=== PATIENT | female | born 1945 | race Caucasian/White ===

== ENCOUNTER 2018-08-18 12:43 | Emergency (ER) | payer MEDICARE, OTHER, SELFPAY ==
--- NOTE | 2018-08-18 12:49 | DI.RAD.S_ITS ---
PROCEDURE: XR RIBS RT MIN 3V W CXR 1V INDICATIONS: injury TECHNIQUE: 2 views of the right ribs were acquired, along with a single view chest. COMPARISON: None. FINDINGS: Surgical changes and devices: None. Bones and chest wall: No fractures or dislocations. No suspicious bony lesions. Overlying soft tissues appear unremarkable. Lungs and pleura: No pleural effusions or pneumothorax. Lungs appear clear. Mediastinum: Mediastinal contours appear normal. Heart size is normal. IMPRESSION: No trauma found. Dictated by: Angel Weir M.D. on 08/18/2018 at 13:27 Approved by: Angel Weir M.D. on 08/18/2018 at 13:28
[2018-08-18 12:52] VITALS: BP 139/64; PULSE 80; RESP 15; TEMP 36.2; O2SAT 98
--- NOTE | 2018-08-18 13:38 | ED.FALL ---
HPI - Fall <DAYDAY Mclaughlin- - Last Filed: 08/18/18 14:36> General Chief Complaint: Fall Stated Complaint: GLF,on to her chest, hurts to breath Time Seen by Provider: 08/18/18 13:29 Source: patient Mode of arrival: ambulatory Limitations: no limitations History of Present Illness HPI Narrative: Patient presents with chief complaint of chest pain on her left breast that started after a ground level fall at a.m. this morning. She said she was bending over while gardening and Tripped on a rock. She states she landed with her chest on for ground. She states she is having pain upon taking a deep breath or laughing. She took 400 mg of ibuprofen at 0800. she denies any chest pain or shortness of breath at this time. She denies any overt bruising. She states she tripped and fell and did not have an episode of syncope or lightheadedness. She states she did not hit her head or her neck or her back. Related Data Home Medications Medication Instructions Recorded Confirmed acyclovir [Zovirax] 200 mg PO BID #0 cap 07/02/16 cholecalciferol (vitamin D3) 2,000 iu PO QDAY #0 07/02/16 [Vitamin D3] ciprofloxacin HCl [Cipro] #0 10/02/17 simvastatin 40 mg PO HS #0 10/02/17 Previous Rx's Medication Instructions Recorded naproxen 500 mg PO BID PRN #20 tab 08/18/18 Allergies Allergy/AdvReac Type Severity Reaction Status Date / Time Sulfa (Sulfonamide Allergy Intermediate Verified 08/18/18 12:52 Antibiotics) [SULFA (SULFONAMIDE ANTIBIOTICS)] Review of Systems <MARY Mclaughlin - Last Filed: 08/18/18 14:36> Review of Systems GENERAL: Denies chills, fatigue, malaise, fever, sweats. HEENT: Denies sinus pain, ear pain, sore throat, difficulty swallowing, dizziness. RESPIRATORY: see HPI CARDIOVASCULAR: Denies chest pain, palpitations, orthopnea, edema, GASTROINTESTINAL: Denies nausea, vomiting, abdominal pain, diarrhea, constipation, melena. : Denies dysuria, frequency, incontinence, hematuria, urinary retention. MUSCULOSKELETAL: See HPI SKIN: Denies rash, skin lesions, or other NEUROLOGIC: Denies weakness, headache, numbness, change in speech, confusion, seizures, incoordination. PSYCHIATRIC: No concerning psychosocial issues. 12 point review of systems is negative except for those stated above Exam <DAYDAY Mclaughlin-BC - Last Filed: 08/18/18 14:36> Narrative Exam Narrative: GENERAL: This is a well-nourished, well-developed patient, teary HEAD: Atraumatic. Normocephalic. No temporal or scalp tenderness. EYES: Pupils equal round and reactive. Extraocular motions intact. No scleral icterus. No injection or drainage. ENT: Nose without bleeding, purulent drainage or septal hematoma. Throat without erythema, tonsillar hypertrophy or exudate. Uvula midline. Airway patent. NECK: Trachea midline. No JVD or lymphadenopathy. Supple, nontender, no meningeal signs. CARDIOVASCULAR: Regular rate and rhythm without murmurs, gallops, or rubs. RESPIRATORY: Clear to auscultation. Breath sounds equal bilaterally. No wheezes, rales, or rhonchi. no cough on exam. Patient has pain on right-sided costochondral joints. Patient has pain and anterior posterior compression of chest wall. Patient has pain on lateral chest wall compression. GASTROINTESTINAL: Abdomen soft, non-tender, nondistended. No hepato-splenomegaly, or palpable masses. No guarding. EXTREMITIES: No clubbing, cyanosis, or edema. No joint tenderness, effusion, or edema noted. BACK: Nontender without deformity or crepitance. No flank tenderness. NEURO: AOx3. SKIN: no rash erythema or ecchymosis noted on chest Initial Vital Signs Initial Vital Signs: Vital Signs Temperature 97.2 F L 08/18/18 12:52 Pulse Rate 80 08/18/18 12:52 Respiratory Rate 15 08/18/18 12:52 Blood Pressure 139/64 08/18/18 12:52 Pulse Oximetry 98 08/18/18 12:52 <Kristofer Fuentes DO - Last Filed: 08/18/18 15:18> Initial Vital Signs Initial Vital Signs: Vital Signs Temperature 97.2 F L 08/18/18 12:52 Pulse Rate 80 08/18/18 12:52 Respiratory Rate 15 08/18/18 12:52 Blood Pressure 139/64 08/18/18 12:52 Pulse Oximetry 98 08/18/18 12:52 Course <BRISSA Mclaughlin - Last Filed: 08/18/18 14:36> Orders Ordered: ED Orders 08/18/18 12:49 XR ribs RT min 3V w CXR1V Stat Discontinued Medications Ketorolac Tromethamine (Toradol) 30 mg IM NOW ONE Stop: 08/18/18 13:49 Last Admin: 08/18/18 13:57 Dose: 30 mg Reevaluation(s) Reevaluation #1: friends at bedside. Discussed negative x-ray results. Discussed use of Toradol. Patient declines narcotic pain medication upon discharge Time: 13:50 Reevaluation #2: discussed pain medications upon discharge. Discussed taking NSAIDs for 6-8 hours after Toradol. Patient has no questions or concer Time: 14:10 Vital Signs - 8 hr 08/18/18 12:52 08/18/18 14:23 Temperature 97.2 F L Pulse Rate 80 78 Respiratory Rate 15 14 Blood Pressure 139/64 Blood Pressure [Right Arm] 130/80 Pulse Oximetry 98 99 <Kristofer Fuentes DO - Last Filed: 08/18/18 15:18> Orders Ordered: ED Orders 08/18/18 12:49 XR ribs RT min 3V w CXR1V Stat Discontinued Medications Ketorolac Tromethamine (Toradol) 30 mg IM NOW ONE Stop: 08/18/18 13:49 Last Admin: 08/18/18 13:57 Dose: 30 mg Vital Signs - 8 hr 08/18/18 12:52 08/18/18 14:23 Temperature 97.2 F L Pulse Rate 80 78 Respiratory Rate 15 14 Blood Pressure 139/64 Blood Pressure [Right Arm] 130/80 Pulse Oximetry 98 99 MDM - Fall <BRISSA Mclaughlin - Last Filed: 08/18/18 14:36> Imaging Data Chest x-ray: Radiologist's impression: [address] [address] XRay Report Signed Patient: Radha Blandon LMR#: [id number] : 7Acct:[id number] Age/Sex: 73 / FDate of Service: 08/18/18 Loc: ED Accession Number: [id number] Procedure: XR ribs RT min 3V w CXR1V Ordering Provider: Kristofer Fuentes D.O. PROCEDURE: XR RIBS RT MIN 3V W CXR 1V INDICATIONS: injury TECHNIQUE: 2 views of the right ribs were acquired, along with a single view chest. COMPARISON: None. FINDINGS: Surgical changes and devices: None. Bones and chest wall: No fractures or dislocations. No suspicious bony lesions. Overlying soft tissues appear unremarkable. Lungs and pleura: No pleural effusions or pneumothorax. Lungs appear clear. Mediastinum: Mediastinal contours appear normal. Heart size is normal. IMPRESSION: No trauma found. Dictated by: Angel Weir M.D. on 08/18/2018 at 13:27 Approved by: Angel Weir M.D. on 08/18/2018 at 13:28 [facility] Narrative Medical decision making narrative: Patient presents with chest wall pain after fall. She is hemodynamically stable, and has a negative x-ray illustrated no fractures. She was treated with Toradol in the emergency department. I discussed continued importance of deep breathing and pain control. Patient Narcotics upon discharge. Discussed follow up with primary care for new or worsening symptoms. Discharge Plan Departure Patient Disposition: Home Clinical Impression: Contusion of chest wall, Fall from ground level Discharge Date/Time: 08/18/18 14:26 Interventions: ED Discharge Assessment Last Done: 08/18/18 14:25 Instructions: DI for Contusion, DI for Rib Contusion Activity Restrictions/Additional Instructions: Your x-rays today did not show any fractures. I believe you have a contusion of her chest wall. Unfortunately these can take a long time to heal. Please remember to keep taking deep breaths in order to prevent pneumonia. We gave you an injection of Toradol in the emergency department please do not take any other NSAIDs for 6-8 hours after. I gave you a prescription of naproxen which she can take for pain at morning and night if needed. Please do not take any other NSAIDs with this. Follow up with primary care provider if needed. Prescriptions: New naproxen 500 mg tablet 500 mg PO BID PRN (Reason: pain) Qty: 20 RF: 0 No Action acyclovir [Zovirax] 200 MG capsule 200 mg PO BID Qty: 0 RF: 0 cholecalciferol (vitamin D3) [Vitamin D3] 2,000 UNIT capsule 2,000 iu PO QDAY Qty: 0 RF: 0 simvastatin 40 MG tablet 40 mg PO HS Qty: 0 RF: 0 ciprofloxacin HCl [Cipro] 500 MG tablet Qty: 0 RF: 0 <Kristofer Fuentes, DO - Last Filed: 08/18/18 15:18> Cosign ED Attending Paola Attestation: I was available for consultation during this patient's emergency department encounter
--- NOTE | 2018-08-18 13:42 | ED_ITS ---
HPI - Fall <DAYDAY Mclaughlin- - Last Filed: 08/18/18 14:36> General Chief Complaint: Fall Stated Complaint: GLF,on to her chest, hurts to breath Time Seen by Provider: 08/18/18 13:29 Source: patient Mode of arrival: ambulatory Limitations: no limitations History of Present Illness HPI Narrative: Patient presents with chief complaint of chest pain on her left breast that started after a ground level fall at a.m. this morning. She said she was bending over while gardening and Tripped on a rock. She states she landed with her chest on for ground. She states she is having pain upon taking a deep breath or laughing. She took 400 mg of ibuprofen at 0800. she denies any chest pain or shortness of breath at this time. She denies any overt bruising. She states she tripped and fell and did not have an episode of syncope or lightheadedness. She states she did not hit her head or her neck or her back. Related Data Home Medications Medication Instructions Recorded Confirmed acyclovir [Zovirax] 200 mg PO BID #0 cap 07/02/16 cholecalciferol (vitamin D3) 2,000 iu PO QDAY #0 07/02/16 [Vitamin D3] ciprofloxacin HCl [Cipro] #0 10/02/17 simvastatin 40 mg PO HS #0 10/02/17 Previous Rx's Medication Instructions Recorded naproxen 500 mg PO BID PRN #20 tab 08/18/18 Allergies Allergy/AdvReac Type Severity Reaction Status Date / Time Sulfa (Sulfonamide Allergy Intermediate Verified 08/18/18 12:52 Antibiotics) [SULFA (SULFONAMIDE ANTIBIOTICS)] Review of Systems <MARY Mclaughlin - Last Filed: 08/18/18 14:36> Review of Systems GENERAL: Denies chills, fatigue, malaise, fever, sweats. HEENT: Denies sinus pain, ear pain, sore throat, difficulty swallowing, dizziness. RESPIRATORY: see HPI CARDIOVASCULAR: Denies chest pain, palpitations, orthopnea, edema, GASTROINTESTINAL: Denies nausea, vomiting, abdominal pain, diarrhea, constipation, melena. : Denies dysuria, frequency, incontinence, hematuria, urinary retention. MUSCULOSKELETAL: See HPI SKIN: Denies rash, skin lesions, or other NEUROLOGIC: Denies weakness, headache, numbness, change in speech, confusion, seizures, incoordination. PSYCHIATRIC: No concerning psychosocial issues. 12 point review of systems is negative except for those stated above Exam <DAYDAY Mclaughlin-BC - Last Filed: 08/18/18 14:36> Narrative Exam Narrative: GENERAL: This is a well-nourished, well-developed patient, teary HEAD: Atraumatic. Normocephalic. No temporal or scalp tenderness. EYES: Pupils equal round and reactive. Extraocular motions intact. No scleral icterus. No injection or drainage. ENT: Nose without bleeding, purulent drainage or septal hematoma. Throat without erythema, tonsillar hypertrophy or exudate. Uvula midline. Airway patent. NECK: Trachea midline. No JVD or lymphadenopathy. Supple, nontender, no meningeal signs. CARDIOVASCULAR: Regular rate and rhythm without murmurs, gallops, or rubs. RESPIRATORY: Clear to auscultation. Breath sounds equal bilaterally. No wheezes , rales, or rhonchi. no cough on exam. Patient has pain on right-sided costochondral joints. Patient has pain and anterior posterior compression of chest wall. Patient has pain on lateral chest wall compression. GASTROINTESTINAL: Abdomen soft, non-tender, nondistended. No hepato-splenomegaly , or palpable masses. No guarding. EXTREMITIES: No clubbing, cyanosis, or edema. No joint tenderness, effusion, or edema noted. BACK: Nontender without deformity or crepitance. No flank tenderness. NEURO: AOx3. SKIN: no rash erythema or ecchymosis noted on chest Initial Vital Signs Initial Vital Signs: Vital Signs Temperature 97.2 F L 08/18/18 12:52 Pulse Rate 80 08/18/18 12:52 Respiratory Rate 15 08/18/18 12:52 Blood Pressure 139/64 08/18/18 12:52 Pulse Oximetry 98 08/18/18 12:52 <Kristofer Fuentes DO - Last Filed: 08/18/18 15:18> Initial Vital Signs Initial Vital Signs: Vital Signs Temperature 97.2 F L 08/18/18 12:52 Pulse Rate 80 08/18/18 12:52 Respiratory Rate 15 08/18/18 12:52 Blood Pressure 139/64 08/18/18 12:52 Pulse Oximetry 98 08/18/18 12:52 Course <BRISSA Mclaughlin - Last Filed: 08/18/18 14:36> Orders Ordered: ED Orders 08/18/18 12:49 XR ribs RT min 3V w CXR1V Stat Discontinued Medications Ketorolac Tromethamine (Toradol) 30 mg IM NOW ONE Stop: 08/18/18 13:49 Last Admin: 08/18/18 13:57 Dose: 30 mg Reevaluation(s) Reevaluation #1: friends at bedside. Discussed negative x-ray results. Discussed use of Toradol. Patient declines narcotic pain medication upon discharge Time: 13:50 Reevaluation #2: discussed pain medications upon discharge. Discussed taking NSAIDs for 6-8 hours after Toradol. Patient has no questions or concer Time: 14:10 Vital Signs - 8 hr 08/18/18 12:52 08/18/18 14:23 Temperature 97.2 F L Pulse Rate 80 78 Respiratory Rate 15 14 Blood Pressure 139/64 Blood Pressure [Right Arm] 130/80 Pulse Oximetry 98 99 <Kristofer Fuentes DO - Last Filed: 08/18/18 15:18> Orders Ordered: ED Orders 08/18/18 12:49 XR ribs RT min 3V w CXR1V Stat Discontinued Medications Ketorolac Tromethamine (Toradol) 30 mg IM NOW ONE Stop: 08/18/18 13:49 Last Admin: 08/18/18 13:57 Dose: 30 mg Vital Signs - 8 hr 08/18/18 12:52 08/18/18 14:23 Temperature 97.2 F L Pulse Rate 80 78 Respiratory Rate 15 14 Blood Pressure 139/64 Blood Pressure [Right Arm] 130/80 Pulse Oximetry 98 99 MDM - Fall <BRISSA Mclaughlin - Last Filed: 08/18/18 14:36> Imaging Data Chest x-ray: Radiologist's impression: [address] [address] XRay Report Signed Patient: Radha Blandon LMR#: [id number] : 7Acct:[id number] Age/Sex: 73 / FDate of Service: 08/18/18 Loc: ED Accession Number: [id number] Procedure: XR ribs RT min 3V w CXR1V Ordering Provider: Kristofer Fuentes D.O. PROCEDURE: XR RIBS RT MIN 3V W CXR 1V INDICATIONS: injury TECHNIQUE: 2 views of the right ribs were acquired, along with a single view chest. COMPARISON: None. FINDINGS: Surgical changes and devices: None. Bones and chest wall: No fractures or dislocations. No suspicious bony lesions. Overlying soft tissues appear unremarkable. Lungs and pleura: No pleural effusions or pneumothorax. Lungs appear clear. Mediastinum: Mediastinal contours appear normal. Heart size is normal. IMPRESSION: No trauma found. Dictated by: Angel Weir M.D. on 08/18/2018 at 13:27 Approved by: Angel Weir M.D. on 08/18/2018 at 13:28 [facility] Narrative Medical decision making narrative: Patient presents with chest wall pain after fall. She is hemodynamically stable, and has a negative x-ray illustrated no fractures. She was treated with Toradol in the emergency department. I discussed continued importance of deep breathing and pain control. Patient Narcotics upon discharge. Discussed follow up with primary care for new or worsening symptoms. Discharge Plan Departure Patient Disposition: Home Clinical Impression: Contusion of chest wall, Fall from ground level Discharge Date/Time: 08/18/18 14:26 Interventions: ED Discharge Assessment Last Done: 08/18/18 14:25 Instructions: DI for Contusion, DI for Rib Contusion Activity Restrictions/Additional Instructions: Your x-rays today did not show any fractures. I believe you have a contusion of her chest wall. Unfortunately these can take a long time to heal. Please remember to keep taking deep breaths in order to prevent pneumonia. We gave you an injection of Toradol in the emergency department please do not take any other NSAIDs for 6-8 hours after. I gave you a prescription of naproxen which she can take for pain at morning and night if needed. Please do not take any other NSAIDs with this. Follow up with primary care provider if needed. Prescriptions: New naproxen 500 mg tablet 500 mg PO BID PRN (Reason: pain) Qty: 20 RF: 0 No Action acyclovir [Zovirax] 200 MG capsule 200 mg PO BID Qty: 0 RF: 0 cholecalciferol (vitamin D3) [Vitamin D3] 2,000 UNIT capsule 2,000 iu PO QDAY Qty: 0 RF: 0 simvastatin 40 MG tablet 40 mg PO HS Qty: 0 RF: 0 ciprofloxacin HCl [Cipro] 500 MG tablet Qty: 0 RF: 0 <Kristofer Fuentes, DO - Last Filed: 08/18/18 15:18> Cosign ED Attending Paola Attestation: I was available for consultation during this patient's emergency department encounter
[2018-08-18] MEDS: KETOROLAC 60 MG/2 ML VIAL 30 MG IM (13:57)
[2018-08-18 14:23] VITALS: BP 130/80; PULSE 78; RESP 14; O2SAT 99
== END 2018-08-18 14:26 | disposition home or self-care (01) ==
PROVIDERS: Emergency Provider Nurse Practitioner Family
DX: S20.219A Contusion of unspecified front wall of thorax, initial encounter (principal); W01.0XXA Fall on same level from slipping, tripping and stumbling without subsequent striking against object, initial encounter
CPT/HCPCS: 71101; 96372; 99282; 99283; J1885

== ENCOUNTER → 2020-05-23 09:14 | Outpatient (CLI) | payer MEDICARE, OTHER, SELFPAY ==
--- NOTE | 2020-05-23 | DI.MRI.S_ITS ---
PROCEDURE: MR KNEE RT WO CON INDICATIONS: RIGHT MENISCUS TEAR TECHNIQUE: Noncontrast sagittal PD fast spin echo and T2 fast spin echo with fat saturation, sagittal 3-D FLASH with fat saturation; coronal T1 spin echo and PD fast spin echo with fat saturation, and axial PD fast spin echo with fat saturation through the knee. COMPARISON: None. FINDINGS: Image quality: Excellent. Menisci: Medial extrusion of the medial meniscus is present. Linear oblique high T2 signal intensity traverses the posterior horn medial meniscus, demonstrating inferior articular surface extension, indicating oblique tearing. Lateral meniscus is intact. Cruciate ligaments: The anterior and posterior cruciate ligaments appear intact. Medial structures: The medial collateral ligament appears intact. Visualized portions of the pes anserinus tendons appear normal. No abnormal bursal fluid. Lateral structures: The lateral collateral ligament, long and short heads of the biceps femoris tendon appear intact. The popliteus tendon appears normal. Iliotibial band appears normal. Anterior structures: The quadriceps and patellar tendons appear intact. Patellar alignment is normal. No femoral trochlear dysplasia or ventral trochlear prominence. No edema in the infrapatellar fat pad. Bones and cartilage: Oblique coronal plane linear low T1 signal intensity traverses the posterior weight-bearing aspect of the medial tibial plateau, with moderate surrounding ill-defined STIR signal elevation. There is ill-defined curvilinear low T1 signal intensity traversing the posterior nonweightbearing aspect of the lateral tibial plateau, with mild surrounding ill-defined stir signal elevation. Moderate diffuse articular cartilage loss overlies the weight-bearing aspects of the medial femoral condyle and medial tibial plateau. Mild articular cartilage loss overlies the lateral patellar facet. Moderate cartilage loss overlies the midportion of the medial patellar facet. Joint space: There is a small knee joint effusion and a small Mo's cyst. Normal appearing synovial plicae are incidentally noted. IMPRESSION: 1. Nondisplaced fracture of the posterior weight-bearing aspect of the medial tibial plateau, with surrounding contusion. 2. Incomplete fracture of the posterior nonweightbearing aspect of the lateral tibial plateau, with surrounding contusion. 3. Medial meniscal tear. 4. Knee joint effusion and small Mo's cyst. Dictated by: Minal Jorge M.D. on 05/23/2020 at 15:07 Approved by: Minal Jorge M.D. on 05/23/2020 at 15:10
--- NOTE | 2020-05-23 | DI.MRI.S_ITS ---
PROCEDURE: MR ANKLE RT WO CON INDICATIONS: RIGHT ANKLE PAIN TECHNIQUE: Noncontrast sagittal T1 spin echo and T2 fast spin echo with fat saturation, axial proton density fast spin echo and T2 fast spin echo with fat saturation, coronal T1 spin echo and T2 fast spin echo with fat saturation through the ankle/hindfoot. COMPARISON: [facility] [place], CR, XR ANKLE 3 VIEWS WEIGHT BEARING RIGHT, 03/28/2020, 15:40. FINDINGS: Image quality: Excellent. Bones and joints: There is a mildly displaced small avulsion fracture posteriorly in the lateral malleolus with associated bone marrow edema. No hindfoot coalitions. No osteochondral injuries of the talar dome. There is a small tibiotalar joint effusion Medial structures: The posterior tibialis, flexor digitorum longus, and flexor hallucis longus tendons are intact. The posterior tibial neurovascular bundle appears normal within the tarsal tunnel, without extrinsic mass effect. The deltoid and spring ligaments appear intact. Lateral structures: The anterior talofibular, calcaneofibular, and posterior talofibular ligaments demonstrate attenuated signal with periligamentous edema consistent with moderate sprains. More superiorly, the anterior and posterior tibiofibular ligaments appear intact, as is the intermalleolar ligament. The tibiofibular syndesmosis is normal in width at 2 mm or less. The peroneus longus and brevis tendons demonstrate normal location and morphology. There is associated mild peritendinous edema and fluid. Adjacent bony peroneal tubercle and retrotrochlear prominence are normal in size. The sinus tarsi demonstrates preserved fatty signal with mild associated edema. The calcaneonavicular and calcaneocuboid components of the bifurcate ligament appear intact. The dorsal calcaneocuboid ligament appears intact. Anterior structures: The tibialis anterior, extensor hallucis longus, and extensor digitorum longus tendons appear intact. There is mild soft tissue edema along the anterolateral aspect of the ankle including a small amount of edema tracking along the extensor digitorum longus tendon. The dorsal talonavicular ligament appears intact. Posterior and plantar structures: Achilles tendon is intact. Medial and lateral bands of the plantar fascia are of normal thickness. No abductor digiti quinti muscle atrophy to suggest Stoddard neuropathy. IMPRESSION: 1. Mildly displaced fracture of the lateral malleolus posteriorly compatible with an avulsion fracture. 2. Sequelae of moderate sprains of the lateral ankle ligaments as described. 3. Small tibiotalar joint effusion. 4. Mild soft tissue edema along the anterolateral aspect of the ankle may represent reactive changes or mild impingement. Dictated by: Bigg Garza M.D. on 05/23/2020 at 17:31 Approved by: Bigg Garza M.D. on 05/23/2020 at 17:38
== END ==
PROVIDERS: Referring Provider Orthopaedic Surgery Foot and Ankle Surgery; Visit Provider Orthopaedic Surgery Foot and Ankle Surgery
DX: M25.571 Pain in right ankle and joints of right foot (principal); S82.61XA Displaced fracture of lateral malleolus of right fibula, initial encounter for closed fracture; S82.144A Nondisplaced bicondylar fracture of right tibia, initial encounter for closed fracture; S83.241A Other tear of medial meniscus, current injury, right knee, initial encounter; M71.21 Synovial cyst of popliteal space [Baker], right knee; M25.461 Effusion, right knee; M25.471 Effusion, right ankle
CPT/HCPCS: 73721

== ENCOUNTER → 2020-11-16 10:05 | Outpatient (CLI) | payer MEDICARE, OTHER, SELFPAY | PROVIDERS: Visit Provider Physician Assistant | DX: R30.0 Dysuria (principal) | CPT/HCPCS: 87077; 87086 ==

== ENCOUNTER → 2022-08-31 15:30 | Outpatient (CLI) | payer MEDICARE, OTHER, SELFPAY | PROVIDERS: Visit Provider Registered Nurse | DX: N39.0 Urinary tract infection, site not specified (principal) | CPT/HCPCS: 87086 ==

== ENCOUNTER → 2022-11-18 11:04 | Outpatient (CLI) | payer MEDICARE, OTHER, SELFPAY ==
[2022-11-18 12:03] LABS: Calcium 10.8 mg/dL (8.4-10.2); Estimated Glomerular Filt Rate > 60 mL/min (>60); Magnesium 2.2 mg/dL (1.6-2.3)
[2022-11-18 12:18] LABS: Vitamin D 25 Hydroxy (D3) 47.8 ng/mL (30.0-100.0)
[2022-11-20 11:49] LABS: Parathyroid Hormone Int 60 pg/mL (15-65)
[2022-11-22 15:34] LABS: Albumin 4.7 g/dL (3.5-5.0)
[2022-11-27 22:43] LABS: 1,25-Dihydroxy, Vitamin D-2 <10 pg/mL (.)
== END ==
PROVIDERS: Referring Provider Internal Medicine Endocrinology, Diabetes & Metabolism; Visit Provider Internal Medicine Endocrinology, Diabetes & Metabolism
DX: E21.0 Primary hyperparathyroidism (principal)
CPT/HCPCS: 36415; 82040; 82306; 82310; 82565; 82652; 83735; 83970; 84100

== ENCOUNTER → 2022-11-22 10:50 | Outpatient (CLI) | payer MEDICARE, OTHER, SELFPAY ==
[2022-11-22 17:40] LABS: Calcium 24 Hour Urine 182 mg/day (100-300); Collection Time Urine 24 Hours; Total Volume Urine 2600 mL
[2022-11-22 17:42] LABS: Collection Time Urine 24 Hours; Creatinine 24 Hour Urine 728 mg/day (800-1800); Total Volume Urine 2600 mL
== END ==
PROVIDERS: Referring Provider Internal Medicine Endocrinology, Diabetes & Metabolism; Visit Provider Internal Medicine Endocrinology, Diabetes & Metabolism
DX: E21.3 Hyperparathyroidism, unspecified (principal)
CPT/HCPCS: 82340; 82570

== ENCOUNTER → 2023-05-05 14:44 | Outpatient (CLI) | payer MEDICARE, OTHER, SELFPAY | PROVIDERS: Visit Provider Registered Nurse | DX: R30.0 Dysuria (principal) | CPT/HCPCS: 87086 ==

== ENCOUNTER 2023-05-31 10:00 | Emergency (ER) | payer MEDICARE, OTHER, SELFPAY ==
[2023-05-31 10:07] VITALS: BP 149/83; PULSE 137; O2SAT 99
--- NOTE | 2023-05-31 10:09 | ED.GENADULT ---
HPI - General Adult General Chief complaint: Urogenital-Female Stated complaint: experiencing difficulty urinating/bowel movements Time Seen by Provider: 05/31/23 10:09 History of Present Illness HPI narrative: 77-year-old female nonsmoker with history of frequent urinary tract infections presents with a chief complaint of dysuria, frequency and urgency for the past few days. She denies any fever or chills. She denies nausea or vomiting. She denies any back pain. Additionally, she complains of chronic issues with constipation and has had workups in the past and states there is no significant difference here. Related Data Home Medications Medication Instructions Recorded Confirmed cholecalciferol (vitamin D3) 50 2,000 iu PO QDAY ##0 07/02/16 05/05/23 mcg (2,000 unit) capsule (Vitamin D3) simvastatin 40 mg tablet 40 mg PO HS ##0 10/02/17 05/05/23 acyclovir 400 mg tablet 400 mg PO DAILY 11/16/20 05/05/23 Previous Rx's Medication Instructions Recorded azithromycin 250 mg tablet See Rx Instructions PO .COMPLEX #6 06/22/22 (Zithromax Z-Rj) tabs cephalexin 500 mg capsule 500 mg PO Q6H 7 days #28 caps 05/31/23 Allergies Allergy/AdvReac Type Severity Reaction Status Date / Time Sulfa (Sulfonamide Allergy Intermediate Verified 05/05/23 15:11 Antibiotics) [SULFA (SULFONAMIDE ANTIBIOTICS)] imipenem Allergy Hives Verified 05/05/23 15:11 Review of Systems Review of Systems Narrative: GENERAL: Denies chills, fatigue, malaise, fever, sweats. HEENT: Denies sinus pain, ear pain, sore throat, difficulty swallowing, dizziness. RESPIRATORY: Denies dyspnea, cough, wheezing, hemoptysis, sputum. CARDIOVASCULAR: Denies chest pain, palpitations, orthopnea, edema, GASTROINTESTINAL: Denies nausea, vomiting, abdominal pain, diarrhea, constipation, melena. : See HPI MUSCULOSKELETAL: denies weakness, joint pain, or bony pain SKIN: Denies rash, skin lesions, or other NEUROLOGIC: Denies weakness, headache, numbness, change in speech, confusion, seizures, incoordination. PSYCHIATRIC: No concerning psychosocial issues. 12 point review of systems is negative except for those stated above Patient History Medical History No active medical problems Social History Smoking Status: Never smoker Smoking Status: Never smoker Exam Narrative Exam Narrative: GENERAL: [77] year old patient appears stated age. Well-developed patient, in mild distress. HEAD: Atraumatic. Normocephalic. EYES: Pupils equal round and reactive. Extraocular motions intact. No scleral icterus. No injection or drainage. ENT: Nose without bleeding, purulent drainage. Throat without erythema, tonsillar hypertrophy or exudate. Airway patent. NECK: Trachea midline. Non tender CARDIOVASCULAR: Regular rate and rhythm without murmurs, gallops, or rubs. RESPIRATORY: Clear to auscultation. Breath sounds equal bilaterally. No wheezes, rales, or rhonchi. GASTROINTESTINAL: Abdomen soft, non-tender, nondistended. sounds present in all 4 quadrants EXTREMITIES: No edema or joint tenderness. BACK: Nontender without deformity or crepitance. No flank tenderness. NEURO: AOx3. SKIN: No rash or erythema of visible areas Initial Vital Signs Initial Vital Signs: Vital Signs Pulse Rate 137 H 05/31/23 10:07 Blood Pressure 149/83 H 05/31/23 10:07 Pulse Oximetry 99 05/31/23 10:07 Course Orders Ordered: ED Orders 05/31/23 10:23 XR acute abdomen series Stat 05/31/23 11:03 Urine Culture Stat Urine Microscopic Stat Vital Signs Vital signs: Vital Signs - 8 hr 05/31/23 10:10 05/31/23 10:07 05/31/23 10:07 Temperature 97.8 F Pulse Rate 130 H 137 H Respiratory Rate 16 Blood Pressure 149/83 H 149/83 H Pulse Oximetry 100 99 Oxygen Delivery Method Room Air 05/31/23 11:03 05/31/23 11:04 05/31/23 11:04 Temperature Pulse Rate 82 80 Respiratory Rate Blood Pressure 141/65 H Pulse Oximetry 96 98 Oxygen Delivery Method Medical Decision Making Lab Data Labs: Lab Results 05/31/23 Range/Units 11:03 Urine RBC 1-5/hpf (0-5/HPF) Urine WBC >100/hpf H (0-5/HPF) Ur Squamous Epith Cells None seen (0-5/HPF) Urine Bacteria Many (>30) H (None) Urine Dip Bedside Urine Glucose Negative Bedside Urine Bilirubin - Negative Bedside Urine Ketone - Negative Urine Specific Milton 1.025 Bedside Urine Occult Blood +++ Bedside Urine pH 6 Bedside Urine Protein ++ 100 Bedside Urine Urobilinogen - Negative Bedside Urine Nitrite + Positive Bedside Urine Leukocytes +++ 500 Esterase Point of care testing: Urine Dip Bedside Urine Glucose Negative Bedside Urine Bilirubin - Negative Bedside Urine Ketone - Negative Urine Specific Milton 1.025 Bedside Urine Occult Blood +++ Bedside Urine pH 6 Bedside Urine Protein ++ 100 Bedside Urine Urobilinogen - Negative Bedside Urine Nitrite + Positive Bedside Urine Leukocytes +++ 500 Esterase MDM Narrative Medical decision making narrative: [77] year old patient presents with typical UTI symptoms for the past few days, no back pain no fever, no vomiting Multiple etiologies for patient's symptoms considered including, but not limited to: [ cystitis versus pyelonephritis versus other] Prior Charts reviewed in our EMR Primary Historian: patient Labs reviewed and interpreted by myself: urine very convincing for urinary tract infection Imaging reviewed: no evidence of bowel obstruction patient's history and physical exam are reassuring, she has no signs of sepsis, no systemic complaints, urine very convincing for UTI, no upper tract signs. She complains of some constipation and acute abdominal series shows nonspecific bowel pattern, no evidence of obstruction. Findings and discharge diagnosis discussed with patient/family followed by verbalization of understanding Return precautions discussed with patient/family whom verbalize understanding of diagnosis and plan Discharge Plan Departure Patient Disposition: Home Clinical Impression: Acute UTI Instructions: DI for Urinary Tract Infection (UTI) Activity Restrictions/Additional Instructions: *You have been diagnosed with [ urinary tract infection] *What to do: *Please continue to take your regular medications as directed. [ x] New medication prescriptions sent to your pharmacy: [ [facility]] [ ] New medication written as a paper prescription [ ] No new medications given *Please follow up with your primary care provider in 2-3 days, call for an appointment. Let them know you were seen in the Emergency Department and that we ask that you be seen in follow up. We will electronically transmit a record of today's note if your PCP is in our system * as we discussed, due to your report of frequent urinary tract infections I have included contact information for local urology. Please contact their office on Friday, let them know that you were seen in the emergency department and we would like you to be seen in follow-up. It may require in official referral from your primary care provider. *Return to Emergency Department if you should have any new, worsening or concerning symptoms, such as [fever greater than 101 F, shaking chills, worsening pain, persistent vomiting or other bothersome symptoms] Prescriptions: New cephalexin 500 mg capsule 500 mg PO Q6H 7 Days Qty: 28 0RF No Action acyclovir 400 mg tablet 400 mg PO DAILY azithromycin [Zithromax Z-Rj] 250 mg tablet See Rx Instructions PO .COMPLEX Qty: 6 0RF Rx Instructions: For 250 mg dose pack: take 500 mg today (day 1), then 250 mg for 4 days (days 2-5) PO cholecalciferol (vitamin D3) [Vitamin D3] 2,000 UNIT capsule 2,000 iu PO QDAY Qty: 0 simvastatin 40 MG tablet 40 mg PO HS Qty: 0 Referrals: Miscellaneous,Doctor, MD [Primary Care Provider] - Stand Alone Forms: Patient Portal/API
[2023-05-31 10:10] VITALS: BP 149/83; PULSE 130; RESP 16; TEMP 36.6; O2SAT 100
--- NOTE | 2023-05-31 10:23 | DI.RAD.S_ITS ---
PROCEDURE: XR ACUTE ABDOMEN SERIES INDICATIONS: abdominal pain, decreased BM TECHNIQUE: One view chest and two views of the abdomen were acquired. COMPARISON: None. FINDINGS: Surgical changes and devices: None. Chest: Lungs are clear. Heart size is normal. No pleural effusions. No pneumoperitoneum. Abdomen: Bowel gas pattern is normal. No suspicious calcifications. Visualized solid organ contours appear normal. Moderate fecal debris in the right colon Bones: No suspicious bony lesions. IMPRESSION: No acute cardiopulmonary findings Nonobstructive bowel gas pattern Approved by: Dayne Walton M.D. on 05/31/2023 at 10:27
[2023-05-31 11:03] VITALS: PULSE 82; O2SAT 96
[2023-05-31 11:04] VITALS: BP 141/65; PULSE 80; O2SAT 98
[2023-05-31 11:11] LABS: Bacteria Urine Many (>30); RBC Urine 1-5/HPF (0-5/HPF); Squamous Epithelial Cell Urine None Seen (0-5/HPF); WBC Urine >100/HPF (0-5/HPF)
[2023-05-31 11:31] VITALS: BP 141/65; PULSE 78; RESP 12; O2SAT 98
== END 2023-05-31 11:32 | disposition home or self-care (01) ==
PROVIDERS: Emergency Provider Emergency Medicine
DX: N39.0 Urinary tract infection, site not specified (principal)
CPT/HCPCS: 51798; 74022; 81003; 81015; 87077; 87086; 87186; 99283; 99284

== ENCOUNTER → 2023-06-05 10:27 | Outpatient (CLI) | payer MEDICARE, OTHER, SELFPAY | PROVIDERS: Visit Provider Physician Assistant | DX: N39.0 Urinary tract infection, site not specified (principal) | CPT/HCPCS: 87086 ==

== ENCOUNTER → 2023-07-23 13:52 | Outpatient (CLI) | payer MEDICARE, OTHER, SELFPAY | PROVIDERS: Visit Provider Urology | DX: N39.0 Urinary tract infection, site not specified (principal) | CPT/HCPCS: 87086 ==

== ENCOUNTER → 2023-07-23 14:43 | Outpatient (CLI) | payer MEDICARE, OTHER, SELFPAY ==
[2023-07-23 15:41] LABS: Blood Urea Nitrogen 18 mg/dL (7-17); Carbon Dioxide 27 mmol/L (22-32); Chloride 100 mmol/L (98-107); Estimated Glomerular Filt Rate > 60 mL/min (>60); Glucose 113 mg/dL (80-110); HEMOLYSIS < 15 (0-50); Potassium 4.2 mmol/L (3.4-5.1); Sodium 134 mmol/L (137-145)
== END ==
PROVIDERS: Referring Provider Urology; Visit Provider Urology
DX: N39.0 Urinary tract infection, site not specified (principal); K59.9 Functional intestinal disorder, unspecified; E21.3 Hyperparathyroidism, unspecified; G35 Multiple sclerosis; Z87.442 Personal history of urinary calculi; Z77.22 Contact with and (suspected) exposure to environmental tobacco smoke (acute) (chronic)
CPT/HCPCS: 36415; 51798; 80048; 81002; 87086; 99214

== ENCOUNTER → 2023-07-25 13:15 | Outpatient (CLI) | payer MEDICARE, OTHER, SELFPAY ==
--- NOTE | 2023-07-25 13:15 | DI.CT.S_ITS ---
PROCEDURE: CT ABDOMEN PELVIS WO/W CON INDICATIONS: Recurring urinary tract infection TECHNIQUE: 5 mm thick noncontrast images acquired from the diaphragm to the symphysis pubis. After the administration of intravenous contrast, 5 mm thick images acquired from the diaphragm to the symphysis pubis after a 10-minute delay. 2 mm thick coronal and sagittal reformats were then performed of the kidneys and ureters. For radiation dose reduction, the following was used: automated exposure control, adjustment of mA and/or kV according to patient size. COMPARISON: None. FINDINGS: Lung bases: No pleural effusion. Possible multi chamber cardiac enlargement. Urinary system: Several nonobstructing stones present within the left kidney, largest at the inferior kidney measuring 9 mm, internal density 655 Hounsfield units. No right renal stone visualized. No ureteral stone bilaterally or bladder stone visualized. Scattered subcentimeter hypodensities are present which are too small to characterize but are statistically likely to represent benign cysts. Node obvious evidence of a solid renal mass. The opacified portions of the renal collecting systems and ureters are unremarkable without a definite filling defect demonstrated. Other solid organs: Small hepatic cyst inferior right lobe. Gallbladder is unremarkable . Biliary system is non dilated. 1.4 cm cyst at the tail of the pancreas (4/79). Spleen is normal in size and enhancement. No adrenal nodules. Peritoneum and bowel: No bowel obstruction. No free air or substantial free fluid. Nodes and vessels: No retroperitoneal or mesenteric adenopathy by size criteria. Aorta and inferior vena cava are normal in size. Pelvis: No pathologic free pelvic fluid. No adenopathy. Bones: Multilevel degenerative change of the visualized spine. IMPRESSION: 1. Nonobstructing left nephrolithiasis. 2. A 1.4 cm cyst is present at the pancreatic tail. This is a nonspecific finding, could represent a side branch IPMN but other cystic neoplasm is not excludable. Imaging follow-up is recommended in 2 years per ACR incidental findings guidelines. At the time of follow-up, pancreatic protocol MRI or CT is recommended. Dictated by: Gumaro Winter M.D. on 07/27/2023 at 16:59 Approved by: Gumaro Winter M.D. on 07/27/2023 at 17:21
== END ==
PROVIDERS: PCP Nurse Practitioner; Referring Provider Urology; Visit Provider Urology
DX: N39.0 Urinary tract infection, site not specified (principal); K59.00 Constipation, unspecified; N20.0 Calculus of kidney; K86.2 Cyst of pancreas
CPT/HCPCS: 74178; Q9967

== ENCOUNTER → 2023-08-13 11:20 | Outpatient (CLI) | payer MEDICARE, OTHER, SELFPAY ==
--- NOTE | 2023-08-13 11:22 | DI.RAD.S_ITS ---
PROCEDURE: XR KUB INDICATIONS: Kidney stones TECHNIQUE: One view of the abdomen acquired. COMPARISON: [facility], CR, XR ACUTE ABDOMEN SERIES, 05/31/2023, 10:22. FINDINGS: Surgical changes and devices: None. Bowel: Bowel gas pattern is normal. Soft tissues: 5 mm calculus noted projecting over the lower pole left kidney.. Visualized solid organ contours appear normal in size. Bones: Degenerative changes noted lower lumbar spine IMPRESSION: Possible 5 mm calculus lower pole left kidney Approved by: Dayne Walton M.D. on 08/13/2023 at 16:44
== END ==
PROVIDERS: PCP Nurse Practitioner; Referring Provider Urology; Visit Provider Urology
DX: N20.0 Calculus of kidney (principal); N39.0 Urinary tract infection, site not specified; R31.21 Asymptomatic microscopic hematuria; Z68.1 Body mass index [BMI] 19.9 or less, adult
CPT/HCPCS: 52000; 74018; 81002

== ENCOUNTER → 2023-09-16 13:23 | Outpatient (CLI) | payer MEDICARE, OTHER, SELFPAY ==
[2023-09-16 14:36] LABS: Alanine Aminotransferase 15 IU/L (<35); Albumin 4.5 g/dL (3.5-5.0); Albumin Globulin Ratio 1.4 (1.0-2.8); Alkaline Phosphatase 55 U/L (38-126); Aspartate Aminotransferase 29 IU/L (14-36); BUN Creatinine Ratio 32.2 (6-22); Bilirubin Total 0.8 mg/dL (0.2-1.3); Blood Urea Nitrogen 19 mg/dL (7-17); Calcium 9.5 mg/dL (8.4-10.2); Carbon Dioxide 29 mmol/L (22-32); Chloride 102 mmol/L (98-107); Cholesterol 233 mg/dL (140-199); Estimated Glomerular Filt Rate > 60 mL/min (>60); Globulin 3.2 g/dL (1.7-4.1); Glucose 103 mg/dL (80-110); HDL Cholesterol 97 mg/dL (40-60); HEMOLYSIS < 15 (0-50); LDL Cholesterol Calculated 112 mg/dL (<100); Potassium 3.8 mmol/L (3.4-5.1); Sodium 138 mmol/L (137-145); Total Protein 7.7 g/dL (6.3-8.2); Triglycerides 118 mg/dL (35-150)
[2023-09-16 15:21] LABS: Free T3, Triiodothyronine Free 3.57 pg/mL (2.77-5.27); Free T4, Direct Thyroxine 0.92 ng/dL (0.78-2.19)
== END ==
PROVIDERS: PCP Nurse Practitioner; Referring Provider Nurse Practitioner; Visit Provider Nurse Practitioner
DX: E78.5 Hyperlipidemia, unspecified (principal); E83.52 Hypercalcemia; E21.3 Hyperparathyroidism, unspecified; E05.90 Thyrotoxicosis, unspecified without thyrotoxic crisis or storm
CPT/HCPCS: 36415; 80053; 80061; 84439; 84443; 84481

== ENCOUNTER → 2023-10-02 12:55 | Outpatient (CLI) | payer MEDICARE, OTHER, SELFPAY ==
--- NOTE | 2023-10-02 12:57 | DI.MG.S_ITS ---
BILATERAL DIGITAL SCREENING MAMMOGRAM 3D/2D WITH CAD: 10/02/2023 CLINICAL: Routine screening. Comparison is made to exams dated: 02/14/2021 mammogram, 07/18/2022 mammogram, and 08/16/2019 mammogram. Both breasts are heterogeneously dense, which may obscure small masses (category c / 51-75% glandular tissue). Current study was also evaluated with a Computer Aided Detection (CAD) system. There is a biopsy clip in the left breast. No significant masses, calcifications, or other findings are seen in either breast. IMPRESSION: BENIGN There is no mammographic evidence of malignancy. A 1 year screening mammogram is recommended. Based on the Tyrer Cuzick model (a risk assessment model) the patient's lifetime risk is 5.9% and her 10 year risk is 0.0%. According to the ACR, ACS, and NCCN guidelines, an annual breast MRI exam along with mammogram is recommended if the patient's lifetime risk is 20% or greater. This exam was interpreted at Station ID: [id number]. NOTE: For mammograms, a report in lay terms will be sent to the patient. Approximately 15% of breast malignancies will not be visualized mammographically. In the management of a palpable breast mass, a negative mammogram must not discourage biopsy of a clinically suspicious lesion. Electronically Signed By: Shanita Tapia M.D., PH.D eb/jose manuel:10/04/2023 10:57:19 letter sent: Normal Exam ACR BI-RADS Category 2: Benign Finding(s) [id number]
== END ==
PROVIDERS: PCP Nurse Practitioner; Referring Provider Nurse Practitioner; Visit Provider Nurse Practitioner
DX: Z12.31 Encounter for screening mammogram for malignant neoplasm of breast (principal)
CPT/HCPCS: 77063; 77067

== ENCOUNTER → 2023-11-11 08:08 | Outpatient (CLI) | payer MEDICARE, SELFPAY ==
--- NOTE | 2023-11-11 08:12 | DI.MRI.S_ITS ---
PROCEDURE: MR AB PANCREATIC/MRCP PROTOCOL INDICATIONS: PANCREATIC CYST TECHNIQUE: Coronal HASTE through the abdomen, axial 2-D FLASH in- and [id number], and breath-hold T2 FSE with fat saturation through the biliary system and pancreas. Oblique coronal and axial thin-slice HASTE, radial thick-slab HASTE centered on the extrahepatic bile ducts. Intravenous secretin: Not requested. COMPARISON: [facility], CT, CT ABDOMEN PELVIS WO/W CON, 07/25/2023, 13:24. FINDINGS: Image quality: Diagnostic. Gallbladder: Normal wall thickness. Phrygian cap morphology. No visible stones. Cystic duct is patent. Biliary ducts: No intra or extrahepatic biliary dilatation. Pancreas: The pancreatic duct is normal caliber. There are several small unilocular and multilocular side-branch dilatations as well as a few pancreatic cysts without connection to the duct. The largest unilocular cyst arises dorsally from the mid pancreatic tail and measures 1.3 cm. A cystic cluster with probable pancreatic ductal connection in the proximal tail measures about 1.0 cm. Other cysts are smaller and there are no solid enhancing masses OTHER: Lung bases: Moderate cardiomegaly. No basal pleural effusions. Mild pectus excavatum deformity. Liver: Thin-walled 1.9 cm hepatic cyst. No enhancing solid masses. Spleen: Size is within normal limits. Adrenal Glands: No adrenal nodules. Kidneys and Ureters: The kidneys are symmetric in size. There is abnormal increased signal in the medullary parenchyma bilaterally and increased corticomedullary differentiation on T1 imaging. Postcontrast, there is urothelial enhancement of throughout the kidney and visible left ureter. No hydronephrosis. The several subcentimeter cortical cystic structures present bilaterally. Several hypointense foci in calices suggests nonobstructing calculi. Stomach and Bowel: Stomach and visible small bowel loops are normal caliber. Visible loops of colon are normal. Peritoneum: No abnormal intraperitoneal fluid. No free air. Ventral Wall: No hernia. Abdominal Nodes: No retroperitoneal or mesenteric adenopathy by size criteria. Vessels: Aorta and inferior vena cava are normal in size. Bones: No aggressive osseous abnormality. IMPRESSION: Several small thin-walled, nonenhancing cysts in the pancreas, several of which demonstrate ductal connection and a few which do not. 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 Imaging follow-up to assess for size changes recommended. Incidental note of abnormal renal signal, urothelial enhancement, and several caliceal hypointensities. Medullary nephrocalcinosis and chronic inflammation, potentially due to stone passage is suspected. There is no evidence of acute obstructive uropathy or pyelonephritis on the current exam. Dictated by: Nargis Lam M.D. on 11/11/2023 at 17:01 Approved by: Nargis Lam M.D. on 11/11/2023 at 17:20
== END ==
PROVIDERS: PCP Nurse Practitioner; Referring Provider Internal Medicine Gastroenterology; Visit Provider Internal Medicine Gastroenterology
DX: K86.2 Cyst of pancreas (principal)
CPT/HCPCS: 74183; A9579

== ENCOUNTER → 2023-12-17 06:42 | Outpatient (CLI) | payer MEDICARE, SELFPAY ==
--- NOTE | 2023-12-17 06:45 | DI.ECHO.S_ITS ---
[facility] +---------+ : : [address] : : : : [id number] : : : : Phone: [phone]+ Echocardiogram Report + + :Name: SOL NOVAK Study Date: 12/17/2023 Height: 65.5 in: :[facility] ReadingLocation: Weight: 120 lb : : Gender: Female BSA: 1.6 m2 : :: 1945 Age: 78 yrs BP: 144/76 mmHg: :Reason For Study: CARDIOMEGALY : :Ordering Physician: WILLARD, : :MAGDIEL Performed By: Gosia Ambrosio : :Referring: MAGDIEL LAMAR : + + Interpretation Summary 1) Normal left ventricular thickness, size, and systolic function (EF 55-60%). 2) Basal inferior wall appears to be hypokinetic (or could be artifactual). 3) Normal right ventricular size with mildly reduced function. 4) There is mild mitral regurgitation (posteroirly directed). There is mild aortic regurgitation. 5) No prior Echo available for comparison. Procedure: A two-dimensional transthoracic echocardiogram with color flow and Doppler was performed. The study quality was technically adequate. Patient has pectus excavatum. There is no prior echocardiogram noted for this patient. The patient was in sinus rhythm with heart rates between 63-81 bpm during the exam. Left Ventricle: The left ventricle is normal in size and wall thickness. The ejection fraction is estimated to be 55-60%. Basal inferior wall appears to be hypokinetic (or could be artifactual). Diastolic parameters suggest a relaxation abnormality of the left ventricle, consistent with probable normal filling pressures. Right Ventricle: The right ventricle is normal size. Right ventricular systolic function is mildly reduced. Atria: The left atrial size is normal. Right atrial size is normal. There is no Doppler evidence for an interatrial shunt. Mitral Valve: The mitral valve leaflets appear mildly thickened, but open well. There is mild mitral regurgitation. Aortic Valve: The aortic valve is not well visualized. There is no aortic valve stenosis. There is mild aortic regurgitation. Tricuspid Valve: The tricuspid valve is normal in structure and function. There is trace tricuspid regurgitation. Pulmonic Valve: The pulmonic valve is not well visualized. There is no pulmonic valvular regurgitation. Great Vessels: The aortic root is normal size. The ascending aorta could not be visualized. The IVC is of normal diameter and collapses greater than 50% with a sniff. This suggests a low right atrial pressure of 3 mm Hg. Pericardium/ Pleura There is a trivial pericardial effusion noted. There is no pleural effusion. MMode/2D Measurements & Calculations LVIDd: 4.4 cm LVOT diam: 2.1 cm LVIDs: 3.1 cm Ao root diam: 2.2 cm FS: 30.5 % Ao Arch Diam (Prox Trans): 2.2 cm EPSS: 0.52 cm IVSd: 0.55 cm LVPWd: 0.74 cm LV eubanks. diameter/BSA (cm/m^2): 2.8 LV sys. diameter/BSA (cm/m^2): 1.9 LA A2 area: 20.4 cm2 RA long axis: 5.6 cm LA A4 area: 15.9 cm2 RA area: 14.1 cm2 LA length (vol): 5.3 cm RA vol: 29.8 ml LA vol: 51.7 ml RA : 18.6 ml/m2 LA vol index: 32.3 ml/m2 IVC diam: 0.54 cm RVD1 (basal): 2.6 cm RVD2 (mid): 2.2 cm TAPSE: 1.3 cm Doppler Measurements & Calculations Ao V2 max: 115.1 cm/sec LVOT Max Dov: 75.1 cm/sec Ao V2 mean: 79.5 cm/sec LV V1 max P.3 mmHg Ao max P.3 mmHg LV V1 VTI: 15.6 cm Ao mean P.8 mmHg JOCY(I,D): 2.4 cm2 Ao V2 VTI: 23.6 cm JOCY(V,D): 2.3 cm2 sev ratio: 0.66 JOCY indexed to BSA (cm^2/m^2): 1.5 AI P1/2t: 814.9 msec AI dec slope: 175.4 cm/sec2 MV E max dov: 58.4 cm/sec PA V2 max: 98.9 cm/sec MV A max dov: 65.8 cm/sec PA V2 mean: 68.1 cm/sec MV E/A: 0.89 PA mean P.1 mmHg Med Peak E' Dov: 5.6 cm/sec E/E' med: 10.4 Lat Peak E' Dov: 5.8 cm/sec E/E' lat: 10.0 E/e' average: 10.2 MV dec time: 0.26 sec SV(LVOT): 55.6 ml Reading Physician:09:07 AM
[2023-12-17 09:32] LABS: Alanine Aminotransferase 22 IU/L (<35); Albumin 4.4 g/dL (3.5-5.0); Albumin Globulin Ratio 1.4 (1.0-2.8); Alkaline Phosphatase 42 U/L (38-126); Aspartate Aminotransferase 31 IU/L (14-36); BUN Creatinine Ratio 30.2 (6-22); Bilirubin Total 0.6 mg/dL (0.2-1.3); Blood Urea Nitrogen 19 mg/dL (7-17); Calcium 9.5 mg/dL (8.4-10.2); Carbon Dioxide 28 mmol/L (22-32); Chloride 102 mmol/L (98-107); Cholesterol 237 mg/dL (140-199); Estimated Glomerular Filt Rate > 60 mL/min (>60); Globulin 3.1 g/dL (1.7-4.1); Glucose 108 mg/dL (80-110); HEMOLYSIS < 15 (0-50); Potassium 4.3 mmol/L (3.4-5.1); Sodium 138 mmol/L (137-145); Total Protein 7.5 g/dL (6.3-8.2); Triglycerides 95 mg/dL (35-150)
[2023-12-17 09:39] LABS: HDL Cholesterol 122 mg/dL (40-60); LDL Cholesterol Calculated 96 mg/dL (<100)
== END ==
PROVIDERS: PCP Nurse Practitioner; Referring Provider Nurse Practitioner; Visit Provider Nurse Practitioner
DX: I08.0 Rheumatic disorders of both mitral and aortic valves (principal); E78.5 Hyperlipidemia, unspecified; Q67.6 Pectus excavatum; G35 Multiple sclerosis; R69 Illness, unspecified
CPT/HCPCS: 36415; 80053; 80061; 93005; 93010; 93306

== ENCOUNTER → 2024-02-09 07:42 | Outpatient (CLI) | payer MEDICARE, SELFPAY ==
--- NOTE | 2024-02-10 16:27 | DI.NM.S_ITS ---
DATE OF SERVICE: 02/09/2024 PROCEDURE: Exercise stress test. INDICATIONS: Chest pain. CARDIAC STRESS: Patient underwent exercise stress test under the supervision of an attending staff using standard protocol. The patient walked on protocol for 5 minutes and 10 seconds, achieved maximum heart rate of 158, which was 110% of target heart rate. Resting blood pressure 140/80 and peak blood pressure 200/100 mmHg. Achieved 7 METS of workload. SIA -10%. Baseline rhythm sinus. During stress, there was no convincing ischemic EKG changes. However, at peak exercise, patient has frequent PVCs including bigeminy pattern and some couplets. PVCs resolved in recovery. No significant arrhythmias in recovery. No ventricular tachycardia or AFib. No chest pain or anginal symptoms. However, the patient had pain in the right upper abdominal area similar to the pain which she experienced when she came to the cardiology office. CONCLUSION: Exercise stress test negative for inducible ischemia. Achieved 7 metabolic equivalents of workload. Mildly hypertensive blood pressure response. Frequent premature ventricular contractions at peak exercise including ventricular bigeminy pattern, which got resolved in recovery. No ventricular tachycardia or atrial fibrillation. No chest pain, however, had pain in the right upper abdominal area. Overall, low- risk exercise stress test. Correlate clinically. Radha Blandon - CLARK/shala/FREDDIE doc#: [id number]/job#: [id number] dd: 02/09/2024 16:51:00 dt: 02/09/2024 22:51:00 DICTATING /COPIES TO: Phuc Calvillo MD COPIES MNE: AMINTA;
== END ==
LOC: RAD 07:42
PROVIDERS: PCP Nurse Practitioner; Referring Provider Internal Medicine; Visit Provider Internal Medicine
DX: I51.7 Cardiomegaly (principal); R07.9 Chest pain, unspecified; R09.89 Other specified symptoms and signs involving the circulatory and respiratory systems
CPT/HCPCS: 93017

== ENCOUNTER → 2024-04-27 11:29 | Outpatient (CLI) | payer MEDICARE, SELFPAY ==
[2024-04-27 13:19] LABS: BUN Creatinine Ratio 25.3 (6-22); Blood Urea Nitrogen 19 mg/dL (7-17); Calcium 9.6 mg/dL (8.4-10.2); Carbon Dioxide 29 mmol/L (22-32); Chloride 103 mmol/L (98-107); Cholesterol 262 mg/dL (140-199); Estimated Glomerular Filt Rate > 60 mL/min (>60); Glucose 97 mg/dL (80-110); HEMOLYSIS < 15 (0-50); Magnesium 2.1 mg/dL (1.6-2.3); Potassium 4.9 mmol/L (3.4-5.1); Sodium 139 mmol/L (137-145); Triglycerides 110 mg/dL (35-150)
[2024-04-27 13:26] LABS: HDL Cholesterol 116 mg/dL (40-60); LDL Cholesterol Calculated 124 mg/dL (<100)
== END ==
PROVIDERS: PCP Nurse Practitioner; Referring Provider Internal Medicine; Visit Provider Internal Medicine
DX: R07.9 Chest pain, unspecified (principal); E78.5 Hyperlipidemia, unspecified
CPT/HCPCS: 36415; 80048; 80061; 83735

== ENCOUNTER → 2024-05-28 10:56 | Outpatient (CLI) | payer MEDICARE, SELFPAY ==
[2024-05-28 12:20] LABS: Calcium 9.6 mg/dL (8.4-10.2); Estimated Glomerular Filt Rate > 60 mL/min (>60); Magnesium 2.1 mg/dL (1.6-2.3)
[2024-05-29 09:40] LABS: Ionized Calcium 5.1 mg/dL (4.5-5.6)
[2024-05-30 06:36] LABS: Parathyroid Hormone Int 42 pg/mL (15-65)
[2024-06-05 05:13] LABS: 1,25-Dihydroxy, Vitamin D-2 <10 pg/mL (.)
== END ==
PROVIDERS: PCP Nurse Practitioner; Referring Provider Internal Medicine Endocrinology, Diabetes & Metabolism; Visit Provider Internal Medicine Endocrinology, Diabetes & Metabolism
DX: E21.3 Hyperparathyroidism, unspecified (principal)
CPT/HCPCS: 36415; 82040; 82306; 82310; 82330; 82565; 82652; 83735; 83970; 84100

== ENCOUNTER → 2024-08-11 12:15 | Outpatient (CLI) | payer MEDICARE, SELFPAY ==
[2024-08-11 12:44] LABS: Estimated Glomerular Filt Rate > 60 mL/min (>60)
== END ==
PROVIDERS: PCP Family Medicine; Referring Provider Radiology Diagnostic Radiology; Visit Provider Radiology Diagnostic Radiology
DX: R10.9 Unspecified abdominal pain (principal)
CPT/HCPCS: 36415; 82565

== ENCOUNTER → 2024-08-12 07:00 | Outpatient (CLI) | payer MEDICARE, SELFPAY ==
--- NOTE | 2024-08-12 11:41 | DI.CT.S_ITS ---
PROCEDURE: CT ABDOMEN WWO PELVIS W INDICATIONS: Pancreatic Cyst, Abdominal pain TECHNIQUE: After the administration of oral contrast, 5 mm thick sections acquired from the diaphragms to the iliac crests. After the administration of intravenous contrast, 5 mm thick sections acquired from the diaphragms to the symphysis. 5 mm thick coronal and sagittal reformats were acquired. For radiation dose reduction, the following was used: automated exposure control, adjustment of mA and/or kV according to patient size. COMPARISON: None. FINDINGS: Image quality: Diagnostic. Lower Chest: Bibasilar atelectasis. Cardiomegaly, specifically left ventricular dilatation. No pericardial effusion. No hiatal hernia. ABDOMEN: Liver: Solid mass. Right lobe liver cyst. Gallbladder: No wall thickening or calcified stones. Biliary ducts: No biliary dilation. Pancreas: A few small pancreatic cysts are present, one of the largest along the dorsal aspect of the pancreatic tail is relatively stable measuring 1.1 cm. There are no arterially enhancing nodules or solid components. No ductal dilatation. Spleen: Size is within normal limits. Adrenal Glands: No adrenal nodules. Kidneys and Ureters: There are several nonobstructing calcifications in the upper and lower pole calices of the left kidney. Several are wispy and amorphous, conforming to the calyx. There are several small bilateral cortical cysts. Symmetric renal enhancement there is mild left urothelial enhancement of the renal pelvis Stomach and Bowel: Stomach and small bowel loops are normal caliber. Predominantly decompressed colon. Peritoneum: No abnormal intraperitoneal fluid. No free air. Ventral Wall: No significant ventral hernia. Abdominal Nodes: No retroperitoneal or mesenteric adenopathy by size criteria. Vessels: The abdominal aorta, IVC, and portal vein are of normal caliber. PELVIS: Pelvic Organs: Normal CT appearance to the uterus. Ovaries are not well seen. Bladder: Mild urinary bladder wall thickening and slight mucosal enhancement. Pelvic Nodes: No enlarged lymph nodes. Miscellaneous: No inguinal hernias are seen. Bones: No aggressive osseous abnormality. IMPRESSION: Stable appearance to the pancreas which contains several small cysts, better depicted by MR. Several nonobstructing left intrarenal calcifications. Mild left urothelial enhancement and urinary bladder mucosal enhancement may indicate infection, inflammation, or other process. No evidence of urinary obstruction. No explanation for abdominal pain. Dictated by: Nargis Lam M.D. on 08/12/2024 at 15:46 Approved by: Nargis Lam M.D. on 08/12/2024 at 16:14
== END ==
PROVIDERS: PCP Family Medicine; Referring Provider Nurse Practitioner Family; Visit Provider Nurse Practitioner Family
DX: K86.2 Cyst of pancreas (principal); K59.04 Chronic idiopathic constipation; N20.0 Calculus of kidney; N28.1 Cyst of kidney, acquired; R10.84 Generalized abdominal pain; J98.11 Atelectasis; I51.7 Cardiomegaly; K76.89 Other specified diseases of liver; Z86.0101 Personal history of adenomatous and serrated colon polyps
CPT/HCPCS: 74178; Q9967

== ENCOUNTER → 2024-08-19 12:30 | Outpatient (CLI) | payer MEDICARE, SELFPAY | PROVIDERS: PCP Family Medicine; Visit Provider Physician Assistant Medical | DX: R30.0 Dysuria (principal) | CPT/HCPCS: 87086 ==

== ENCOUNTER 2024-09-30 11:23 | Emergency (ER) | payer MEDICARE, SELFPAY ==
[2024-09-30 11:27] VITALS: BP 145/66; PULSE 103; RESP 16; TEMP 36.5; O2SAT 97; BMI 20.7
--- NOTE | 2024-09-30 12:26 | ED_ITS ---
HPI - Extremity Injury (Lower) <Meron Powers PA-C - Last Filed: 09/30/24 14:12> General Chief Complaint: Extremity Injury, Lower Stated Complaint: Left side hip pain Time Seen by Provider: 09/30/24 12:26 Source: patient Mode of arrival: Ambulatory History of Present Illness HPI Narrative: 79-year-old female known to me presents with chief complaint of left-sided buttock pain radiating down her thigh all the way to her foot. She was reaching down to grasp a pelayo when she had immediate pain in the buttock shooting down like a lightening bolt. She states this is never happened to her before. Pain is worse when she is seated, when she is standing she is relatively comfortable. Currently she is denying any numbness or tingling or weakness. She is denying any prior back issues or injury. She did take an oign-rgi-ajmpwkf Tylenol and 1 ibuprofen OTC at around 8:30 a.m. this morning, she also applied a topical heat patch. Initially she rated the pain as a 12/10 at triage when it strikes it is quite severe. What brought her in was she endorses a little bit of tingling in the foot that is intermittent. She is denying any issues with bowel or bladder however her 2nd complaint is some increased urgency of urination and a little bit of burning for the last week. she had a UTI in the past which I saw her at the walk-in clinic on August 19, 2024 she states that the symptoms are similar just not as severe. She is denying any abdominal pain, flank pain, that culture grew aerococcus urinae and she was treated with Macrobid. Her history is also significant for left kidney stones, chronic, chronic pancreatic cysts that are stable, and IBS. She is followed by Dr. Rascon. all other systems reviewed and are negative. Related Data Home Medications Medication Instructions Recorded Confirmed cholecalciferol (vitamin D3) 50 2,000 iu PO QDAY ##0 07/02/16 09/07/24 mcg (2,000 unit) capsule (Vitamin D3) baclofen 10 mg tablet 10 mg PO DAILY 08/19/24 09/07/24 Previous Rx's Medication Instructions Recorded simvastatin 40 mg tablet 40 mg PO HS #90 tabs 01/15/24 acyclovir 400 mg tablet 400 mg PO 5XD outbreaks #60 tabs 09/03/24 nitrofurantoin 100 mg PO BID #13 caps 09/30/24 monohydrate/macrocrystals 100 mg capsule (Macrobid) prednisone 20 mg tablet 40 mg (2 x 20 mg) PO DAILY #8 tabs 09/30/24 Allergies Allergy/AdvReac Type Severity Reaction Status Date / Time Sulfa (Sulfonamide Allergy Intermediate Verified 09/07/24 11:42 Antibiotics) [SULFA (SULFONAMIDE ANTIBIOTICS)] imipenem Allergy Hives Verified 09/07/24 11:42 Review of Systems <Meron Powers PA-C - Last Filed: 09/30/24 14:12> Review of Systems Narrative: All other systems reviewed and are negative. Patient History <Meron Powers PA-C - Last Filed: 09/30/24 14:12> Medical History UTI (urinary tract infection) Mild mitral regurgitation Mild aortic regurgitation Congenital pectus excavatum Cardiomegaly Hyperlipidemia Pancreatic cyst IBS (irritable bowel syndrome) Left renal stone Secondhand smoke exposure Hypercalcemia Bowel dysfunction History of neurological disease History of kidney stones (~2021) Acute UTI No active medical problems Concussion Laceration of skin of scalp Head contusion Surgical History Anesthesia History of nephrolithotomy with removal of calculi (~2021) History of breast biopsy Family History Mother Cancer Sister No problems noted. Social History marital status: number of children: 0 Smoking Status: Never smoker Smoking Status: Never smoker alcohol intake frequency: 0-2 drinks per day Substance Use Type: does not use Exam <Meron Powers PA-C - Last Filed: 09/30/24 14:12> Initial Vital Signs Initial Vital Signs: Vital Signs Temperature 97.7 F 09/30/24 11:27 Pulse Rate 103 H 09/30/24 11:27 Respiratory Rate 16 09/30/24 11:27 Blood Pressure 145/66 H 09/30/24 11:27 Pulse Oximetry 97 09/30/24 11:27 Oxygen Delivery Method Room Air 09/30/24 11:27 Vital signs reviewed and are normal except for slightly elevated systolic and heart rate due to her pain likely. Recheck of her heart rate has come down to 88 per minute. Const Other: Smiling, standing in the exam room walking, no obvious distress. She is alert and oriented x4. Neck Neck: normal visual inspection and full ROM Resp Auscultation: clear to auscultation bilaterally, no rales, no rhonchi and no wheezes Cardio Rate: regular rate Rhythm: regular rhythm GI Inspection: normal to inspection, non-distended and other ( No CVA tenderness.) Palpation: soft and no hepatosplenomegaly Percussion: normal to percussion Auscultation: normal bowel sounds Back/Spine/Pelvis Back: normal to inspection, No back tenderness, No CVA tenderness, No e cchymosis, No erythema and No warmth Cervical Spine: normal cervical lordosis and cervical ROM normal Thoracic/Lumbar Spine: thoracic and lumbar spine normal to inspection and thoraco-lumbar ROM normal Sacroiliac Joints: nontender Sacrum: no tenderness Coccyx: no tenderness Other: Straight leg raise is negative bilaterally. There is no focal bony midline tenderness, no interspace tenderness, no step-off or deformity. She is tender in the left sciatic notch, piriformis also tender. Active range of motion of the hips are intact, no pain elicited with flexion, extension, abduction, adduction, external rotation, no issues with knee flexion, she has full weightbear, no foot drop. Skin General: no rashes or lesions noted, elasticity normal and turgor normal Neuro Other: Deep tendon reflexes are equal in the knee jerk are 2+, ankle jerk are 1+, plantar are downward. Distal neurovascular is grossly intact, sensory is intact. Full strength, equal lower extremities against resistance. <Michel Gamboa MD - Last Filed: 09/30/24 19:26> Initial Vital Signs Initial Vital Signs: Vital Signs Temperature 97.7 F 09/30/24 11:27 Pulse Rate 103 H 09/30/24 11:27 Respiratory Rate 16 09/30/24 11:27 Blood Pressure 145/66 H 09/30/24 11:27 Pulse Oximetry 97 09/30/24 11:27 Oxygen Delivery Method Room Air 09/30/24 11:27 Course <Meron Powers PA-C - Last Filed: 09/30/24 14:12> Orders Ordered: ED Orders 09/30/24 12:21 Ictotest Urine Stat Urine Culture Stat Urine Microscopic Stat Discontinued Medications Ketorolac Tromethamine (Ketorolac 30 Mg/Ml Vial) 15 mg IM NOW ONE Stop: 09/30/24 12:55 Last Admin: 09/30/24 13:14 Dose: 15 mg Documented By: SALMA Nitrofurantoin Macrocrystals (Nitrofurantoin Er 100 Mg Capsule) 100 mg PO NOW ONE Stop: 09/30/24 12:55 Last Admin: 09/30/24 13:13 Dose: 100 mg Documented By: SALMA Prednisone (Prednisone 20 Mg Tablet) 40 mg PO NOW ONE Stop: 09/30/24 12:55 Last Admin: 09/30/24 13:13 Dose: 40 mg Documented By: SALMA Vital Signs Vital signs: Vital Signs - 8 hr 09/30/24 11:27 09/30/24 13:45 Temperature 97.7 F Pulse Rate 103 H 85 Respiratory Rate 16 16 Blood Pressure 145/66 H 135/63 Pulse Oximetry 97 97 Oxygen Delivery Method Room Air Room Air <Michel Gamboa MD - Last Filed: 09/30/24 19:26> Orders Ordered: ED Orders 09/30/24 12:21 Ictotest Urine Stat Urine Culture Stat Urine Microscopic Stat Discontinued Medications Ketorolac Tromethamine (Ketorolac 30 Mg/Ml Vial) 15 mg IM NOW ONE Stop: 09/30/24 12:55 Last Admin: 09/30/24 13:14 Dose: 15 mg Documented By: SALMA Nitrofurantoin Macrocrystals (Nitrofurantoin Er 100 Mg Capsule) 100 mg PO NOW ONE Stop: 09/30/24 12:55 Last Admin: 09/30/24 13:13 Dose: 100 mg Documented By: SALMA Prednisone (Prednisone 20 Mg Tablet) 40 mg PO NOW ONE Stop: 09/30/24 12:55 Last Admin: 09/30/24 13:13 Dose: 40 mg Documented By: SALMA Vital Signs Vital signs: Vital Signs - 8 hr 09/30/24 11:27 09/30/24 13:45 Temperature 97.7 F Pulse Rate 103 H 85 Respiratory Rate 16 16 Blood Pressure 145/66 H 135/63 Pulse Oximetry 97 97 Oxygen Delivery Method Room Air Room Air MDM - Extremity Injury (Lower) <Meron Powers PA-C - Last Filed: 09/30/24 14:12> Lab Data Lab results narrative: Point of care urinalysis is nitrite positive with leukocytes and blood. She is afebrile. Urine sent for culture and sensitivity which is pending. Reviewed her previous chemistry from August 2024, creatinine 0.72 with a GFR greater than 60. Labs: Lab Results 09/30/24 Range/Units 12:21 Ur Bilirubin Confirm Negative (Negative) Urine RBC 0-1/hpf (0-5/HPF) Urine WBC 30-100/hpf H (0-5/HPF) Ur Squamous Epith Cells 0-1 /hpf (0-5/HPF) Urine Bacteria Many (>30) H (None) Urine Mucus 2+ H (Negative) Ur Culture Indicated? Specimen cultured Vol Urine Centrifuged 10ml (spun) Urine Dip Bedside Urine Glucose Negative Bedside Urine Bilirubin + 1 Bedside Urine Ketone +/- 5 Urine Specific [place] 1.020 Bedside Urine Occult Blood +++ Bedside Urine pH 5.5 Bedside Urine Protein + 30 Bedside Urine Urobilinogen - Negative Bedside Urine Nitrite + Positive Bedside Urine Leukocytes ++ 125 Esterase MDM Narrative Medical decision making narrative: She is comfortable when standing, there is no clinical findings to suggest acute cauda equina, she has no focal neurologic findings. She is treated with Toradol 15 mg intramuscularly, 1 dose of prednisone 40 mg, and her 1st antibio tic dose of Macrobid 100 mg. She was given an ice pack to try, biomechanics were reviewed with this patient proper sitting, rising from a seated position, etcetera. She was re-evaluated following treatment, she endorses slight improvement. She is ready to go home. <Michel Gamboa MD - Last Filed: 09/30/24 19:26> Lab Data Labs: Lab Results 09/30/24 Range/Units 12:21 Ur Bilirubin Confirm Negative (Negative) Urine RBC 0-1/hpf (0-5/HPF) Urine WBC 30-100/hpf H (0-5/HPF) Ur Squamous Epith Cells 0-1 /hpf (0-5/HPF) Urine Bacteria Many (>30) H (None) Urine Mucus 2+ H (Negative) Ur Culture Indicated? Specimen cultured Vol Urine Centrifuged 10ml (spun) Urine Dip Bedside Urine Glucose Negative Bedside Urine Bilirubin + 1 Bedside Urine Ketone +/- 5 Urine Specific [place] 1.020 Bedside Urine Occult Blood +++ Bedside Urine pH 5.5 Bedside Urine Protein + 30 Bedside Urine Urobilinogen - Negative Bedside Urine Nitrite + Positive Bedside Urine Leukocytes ++ 125 Esterase Discharge Plan Departure Patient Disposition: Home Clinical Impression: Sciatica of left side, Acute UTI Instructions: DI for Urinary Tract Infection (UTI), DI for Back Pain With Sciatica Activity Restrictions/Additional Instructions: You received Toradol injection which is a strong anti-inflammatory, please do not take any additional ibuprofen today, you may continue tomorrow however with food. Please do ice as we discussed, 10-15 minutes at a time, several times per day, you did receive her 1st dose of prednisone also a very strong anti- inflammatory you will pick pulling machine tender her additional prescription tomorrow and take it daily, this should help your pain and inflammation. The antibiotic dose given today was her 1st, you will pick pulling machine tender your additional course tomorrow at the pharmacy. Please do hydrate, do not hold your bladder, please do seek medical attention if anything changes or worsens, we did discuss body mechanics and proper sitting, consider lying on her side with a pillow support in between her legs to allow for neutral alignment of your hips. Please do follow up with Dr. Nowak as well. your urine was sent for culture and sensitivity those results are pending. We will contact you if any changes need to be made. Red flag warning signs include any weakness, footdrop, worsening pain, any issues with bowel or bladder, any incontinence or retention, seek emergent medical attention immediately Prescriptions: New nitrofurantoin monohyd/m-cryst [Macrobid] 100 mg capsule 100 mg PO BID Qty: 13 0RF Rx Instructions: must administer with a meal/food prednisone 20 mg tablet 40 mg PO DAILY Qty: 8 0RF No Action baclofen 10 mg tablet 10 mg PO DAILY cholecalciferol (vitamin D3) [Vitamin D3] 2,000 UNIT capsule 2,000 iu PO QDAY Qty: 0 acyclovir 400 mg tablet 400 mg PO 5XD Qty: 60 0RF Rx Instructions: Take 1 tab by mouth 5x/day until resolved, may have several treatments in prescription simvastatin 40 mg tablet 40 mg PO HS Qty: 90 3RF Rx Instructions: Take 1 tab (40mg) at bedtime daily for cholesterol Referrals: Wendy Summers MD [Primary Care Provider] - Stand Alone Forms: Patient Portal/API/Survey ED Sign-out <Michel Gamboa MD - Last Filed: 09/30/24 19:26> Cosign ED Attending Cosignature Attestation: I was immediately available in the department for consultation. This documentation has been reviewed and I agree with assessment and plan. Supervised by Michel Gamboa MD
[2024-09-30 12:43] LABS: Ictotest Urine Negative (Negative)
[2024-09-30 12:51] LABS: Urine Volume 10mL (spun)
[2024-09-30 12:53] LABS: Bacteria Urine Many (>30); Culture Indicated Urine Specimen Cultured; Mucus Urine 2+ (Negative); RBC Urine 0-1/HPF (0-5/HPF); Squamous Epithelial Cell Urine 0-1 /HPF (0-5/HPF); WBC Urine 30-100/HPF (0-5/HPF)
[2024-09-30] MEDS: predniSONE 20 MG TABLET 40 MG PO (13:13)
[2024-09-30] MEDS: NITROFURANTOIN ER 100 MG CAPSULE PO (13:13)
[2024-09-30] MEDS: KETOROLAC 30 MG/ML VIAL 15 MG IM (13:14)
[2024-09-30 13:45] VITALS: BP 135/63; PULSE 85; RESP 16; O2SAT 97
== END 2024-09-30 14:06 | disposition home or self-care (01) ==
PROVIDERS: Emergency Provider Physician Assistant Medical; PCP Family Medicine
DX: M54.32 Sciatica, left side (principal); N39.0 Urinary tract infection, site not specified
CPT/HCPCS: 81003; 81015; 87077; 87086; 87186; 96372; 99283; 99284; J1885

== ENCOUNTER → 2024-10-14 08:31 | Outpatient (CLI) | payer MEDICARE, SELFPAY ==
[2024-10-14 09:34] LABS: Cholesterol 235 mg/dL (140-199); HDL Cholesterol 100 mg/dL (40-60); LDL Cholesterol Calculated 110 mg/dL (<100); Triglycerides 126 mg/dL (35-150)
== END ==
PROVIDERS: PCP Family Medicine; Referring Provider Family Medicine; Visit Provider Nurse Practitioner
DX: E78.5 Hyperlipidemia, unspecified (principal)
CPT/HCPCS: 36415; 80061

== ENCOUNTER → 2024-10-16 09:21 | Outpatient (CLI) | payer MEDICARE, SELFPAY ==
[2024-10-16 10:33] LABS: BUN Creatinine Ratio 32.4 (6-22); Blood Urea Nitrogen 24 mg/dL (7-17); Calcium 9.8 mg/dL (8.4-10.2); Carbon Dioxide 27 mmol/L (22-32); Chloride 105 mmol/L (98-107); Estimated Glomerular Filt Rate > 60 mL/min (>60); Glucose 94 mg/dL (80-110); HEMOLYSIS < 15 (0-50); Sodium 139 mmol/L (137-145)
[2024-10-16 10:34] LABS: Potassium 5.4 mmol/L (3.4-5.1)
== END ==
PROVIDERS: PCP Family Medicine; Referring Provider Internal Medicine; Visit Provider Internal Medicine
DX: R07.9 Chest pain, unspecified (principal)
CPT/HCPCS: 36415; 80048; 83735

== ENCOUNTER → 2024-10-19 09:15 | Outpatient (CLI) | payer MEDICARE, SELFPAY ==
[2024-10-19 10:34] LABS: BUN Creatinine Ratio 32.9 (6-22); Blood Urea Nitrogen 23 mg/dL (7-17); Calcium 9.7 mg/dL (8.4-10.2); Carbon Dioxide 27 mmol/L (22-32); Chloride 108 mmol/L (98-107); Estimated Glomerular Filt Rate > 60 mL/min (>60); Glucose 117 mg/dL (80-110); HEMOLYSIS < 15 (0-50); Potassium 5.4 mmol/L (3.4-5.1); Sodium 140 mmol/L (137-145)
== END ==
PROVIDERS: PCP Family Medicine; Referring Provider Internal Medicine; Visit Provider Internal Medicine
DX: E87.5 Hyperkalemia (principal)
CPT/HCPCS: 36415; 80048

== ENCOUNTER → 2024-11-05 08:03 | Outpatient (CLI) | payer MEDICARE, SELFPAY ==
--- NOTE | 2024-11-05 08:03 | DI.MG.S_ITS ---
BILATERAL DIGITAL SCREENING MAMMOGRAM 3D/2D WITH CAD: 11/05/2024 CLINICAL: Routine screening. Comparison is made to exams dated: 10/02/2023 mammogram - [facility], 07/18/2022 mammogram, and 02/14/2021 mammogram. The breasts are heterogeneously dense, which may obscure small masses (category c / 51-75% glandular tissue). Current study was also evaluated with a Computer Aided Detection (CAD) system. There is a biopsy clip in the left breast. No significant masses, calcifications, or other findings are seen in either breast. There has been no significant interval change. IMPRESSION: NEGATIVE There is no mammographic evidence of malignancy. A 1 year screening mammogram is recommended. Based on the Tyrer Cuzick model (a risk assessment model) the patient's lifetime risk is 5.4% and her 10 year risk is 0.0%. According to the ACR, ACS, and NCCN guidelines, an annual breast MRI exam along with mammogram is recommended if the patient's lifetime risk is 20% or greater. This exam was interpreted at Station ID: [id number]. NOTE: For mammograms, a report in lay terms will be sent to the patient. Approximately 15% of breast malignancies will not be visualized mammographically. In the management of a palpable breast mass, a negative mammogram must not discourage biopsy of a clinically suspicious lesion. Electronically Signed By: Hardy márquez/jose manuel:11/05/2024 09:00:04 letter sent: Normal Exam ACR BI-RADS Category 1: Negative
== END ==
PROVIDERS: PCP Family Medicine; Referring Provider Family Medicine; Visit Provider Family Medicine
DX: Z12.31 Encounter for screening mammogram for malignant neoplasm of breast (principal); R92.333 Mammographic heterogeneous density, bilateral breasts
CPT/HCPCS: 77063; 77067

== ENCOUNTER → 2024-11-19 08:32 | Outpatient (CLI) | payer MEDICARE, SELFPAY ==
[2024-11-19 09:24] LABS: HEMOLYSIS 26 (0-50); Iron 126 ug/dL (37-170)
[2024-11-19 09:26] LABS: BUN Creatinine Ratio 25.8 (6-22); Blood Urea Nitrogen 17 mg/dL (7-17); Calcium 9.6 mg/dL (8.4-10.2); Carbon Dioxide 28 mmol/L (22-32); Chloride 105 mmol/L (98-107); Cholesterol 216 mg/dL (140-199); Estimated Glomerular Filt Rate > 60 mL/min (>60); Glucose 113 mg/dL (80-110); HDL Cholesterol 93 mg/dL (40-60); HEMOLYSIS < 15 (0-50); LDL Cholesterol Calculated 99 mg/dL (<100); Magnesium 1.9 mg/dL (1.6-2.3); Potassium 5.1 mmol/L (3.4-5.1); Sodium 138 mmol/L (137-145); Triglycerides 118 mg/dL (35-150)
[2024-11-19 09:35] LABS: Percent Iron Saturation 49 % (15-50); Total Iron Binding Capacity 257 ug/dL (265-497); Transferrin 253 mg/dL (206-381)
[2024-11-19 09:53] LABS: Cortisol AM (Before 10AM) 5.58 ug/dL (4.46-22.7)
[2024-11-19 09:57] LABS: Ferritin 92 ng/mL (11-264)
== END ==
PROVIDERS: PCP Family Medicine; Referring Provider Family Medicine; Visit Provider Family Medicine
DX: R25.2 Cramp and spasm (principal); Z86.39 Personal history of other endocrine, nutritional and metabolic disease; E78.5 Hyperlipidemia, unspecified; E87.5 Hyperkalemia; I51.7 Cardiomegaly
CPT/HCPCS: 36415; 80048; 80061; 82088; 82533; 82728; 83540; 83550; 83735; 84244

== ENCOUNTER → 2024-12-13 10:05 | Outpatient (CLI) | payer MEDICARE, SELFPAY ==
--- NOTE | 2024-12-13 10:07 | DI.ECHO.S_ITS ---
[place] +---------+ Hospital : : [address] : : [place] : : [id number] : : Phone: [phone] Echocardiogram Report + + :Name: SOL NOVAK Study Date: 12/13/2024 Height: 65 in : :[facility] ReadingLocation: Weight: 130 lb : : Gender: Female BSA: 1.6 m2 : :: 1945 Age: 79 yrs BP: 144/73 mmHg: :Reason For Study: CARDIOMEGALY : :Ordering Physician: YAQUELIN DEL RIO Performed By: Brendan Dumont : :Referring: YAQUELIN DEL RIO : + + Interpretation Summary TDS - PECTUS EXCAVATUM 1. The left ventricular contractility is normal. Estimate ejection fraction greater than 55% with no segmental wall motion abnormalities. No LVH. Age- related diastolic dysfunction present. 2. The right ventricular contractility is normal. 3. All cardiac chambers are of normal size. 4. Mild aortic insufficiency. 5. Trace to mild mitral regurgitation. 6. No obvious intracardiac shunts. 7. No obvious intracardiac masses nor thrombi. 8. No hemodynamically significant pericardial effusion. 9. Low right-sided filling pressures. Conclusion: Normal biventricular systolic function with trace to mild valvular insufficiencies. When compared with previous echocardiogram, there appears to be improvement of the right ventricular contractility and the segmental wall motion abnormality reported is no longer present. No significant changes noted in the degree of the valvular insufficiencies. Procedure: A two-dimensional transthoracic echocardiogram with color flow and Doppler was performed. The study quality was technically adequate. Comparison is made with the echocardiogram of 12/17/2023. The patient was in normal sinus rhythm during the exam. Left Ventricle: The left ventricle is normal in size. There is normal left ventricular wall thickness. There is no ventricular septal defect visualized. The ejection fraction is estimated to be 55-60%. There are no focal wall motion abnormalities. Diastolic parameters suggest a relaxation abnormality of the left ventricle, consistent with probable normal filling pressures. Right Ventricle: The right ventricle is normal in size and function. Atria: The left atrial size is normal. Right atrial size is normal. There is no Doppler evidence for an interatrial shunt. Mitral Valve: The mitral valve leaflets appear normal. There is no evidence of stenosis, fluttering, or prolapse. There is mild mitral regurgitation. Aortic Valve: The aortic valve is not well visualized. The aortic valve is grossly normal. There is mild aortic regurgitation. Tricuspid Valve: The tricuspid valve leaflets are thin and pliable. No tricuspid regurgitation. Pulmonic Valve: The pulmonic valve is not well seen, but is grossly normal. There is no pulmonic valvular regurgitation. Great Vessels: The aortic root is normal size. The ascending aorta could not be visualized. The pulmonary artery is normal size. The IVC is of normal diameter and collapses greater than 50% with a sniff. This suggests a low right atrial pressure of 3 mm Hg. Pericardium/ Pleura There is no pericardial effusion. MMode/2D Measurements & Calculations LVIDd: 4.4 cm LVOT diam: 1.9 cm LVIDs: 2.8 cm Ao root diam: 3.3 cm FS: 35.0 % Ao Arch Diam (Prox Trans): 1.8 cm EPSS: 0.58 cm IVSd: 0.88 cm LVPWd: 0.82 cm LV eubanks. diameter/BSA (cm/m^2): 2.7 LV sys. diameter/BSA (cm/m^2): 1.7 LA A2 area: 16.8 cm2 RA long axis: 5.1 cm LA A4 area: 14.9 cm2 RA area: 10.6 cm2 LA length (vol): 5.1 cm RA vol: 19.0 ml LA vol: 41.3 ml RA : 11.5 ml/m2 LA vol index: 25.1 ml/m2 IVC diam: 1.1 cm RVD1 (basal): 2.7 cm RVD2 (mid): 2.0 cm TAPSE: 1.5 cm Doppler Measurements & Calculations Ao V2 max: 127.2 cm/sec LVOT Max Dov: 78.6 cm/sec Ao V2 mean: 87.1 cm/sec LV V1 max P.5 mmHg Ao max P.5 mmHg LV V1 VTI: 19.8 cm Ao mean P.4 mmHg JOCY(I,D): 1.8 cm2 Ao V2 VTI: 29.8 cm JOCY(V,D): 1.7 cm2 sev ratio: 0.66 JOCY indexed to BSA (cm^2/m^2): 1.1 MV E max dov: 36.9 cm/sec PA V2 max: 86.7 cm/sec MV A max dov: 69.9 cm/sec PA V2 mean: 60.2 cm/sec MV E/A: 0.53 PA mean P.6 mmHg Med Peak E' Dov: 6.0 cm/sec PA pr(Accel): 13.9 mmHg E/E' med: 6.2 Lat Peak E' Dov: 6.1 cm/sec E/E' lat: 6.1 E/e' average: 6.1 MV dec time: 0.15 sec SV([facility]): 53.7 ml Reading Physician:TAHMINA
== END ==
PROVIDERS: PCP Family Medicine; Referring Provider Internal Medicine; Visit Provider Internal Medicine
DX: I08.0 Rheumatic disorders of both mitral and aortic valves
CPT/HCPCS: 93306

== ENCOUNTER → 2025-03-03 09:14 | Outpatient (CLI) | payer MEDICARE, SELFPAY ==
[2025-03-03 10:46] LABS: Thyroid Stimulating Hormone 7.93 uIU/mL (0.47-4.68)
[2025-03-03 11:11] LABS: Calcium 24 Hour Urine 132 mg/day (100-300); Calcium Urine Random 8.8 mg/dL; Collection Time Urine 24 Hours; Total Volume Urine 1500 mL
[2025-03-03 11:13] LABS: Collection Time Urine 24 Hours; Creatinine 24 Hour Urine 842 mg/day (800-1800); Creatinine Urine Random 56.11 mg/dL; Total Volume Urine 1500 mL
== END ==
PROVIDERS: PCP Family Medicine; Referring Provider Internal Medicine Endocrinology, Diabetes & Metabolism; Visit Provider Internal Medicine Endocrinology, Diabetes & Metabolism
DX: M81.0 Age-related osteoporosis without current pathological fracture (principal)
CPT/HCPCS: 82340; 82530; 82570; 84156; 84166; 84439; 84443; 86335

== ENCOUNTER → 2025-05-22 10:09 | Outpatient (CLI) | payer MEDICARE, SELFPAY | PROVIDERS: PCP Family Medicine; Visit Provider Chiropractor | DX: R30.0 Dysuria (principal) | CPT/HCPCS: 87077; 87086; 87186 ==

== ENCOUNTER → 2025-07-08 10:40 | Outpatient (CLI) | payer MEDICARE, SELFPAY ==
[2025-07-08 12:01] LABS: Add Manual Diff / Slide Review NO; Hematocrit 39.3 % (36-46); Hemoglobin 13.6 g/dL (12.0-16.0); Lymphocytes Absolute Auto 1000 /uL (1100-4500); Mean Corpuscular HGB Conc 34.5 % (30-36); Mean Corpuscular Hemoglobin 30.6 PG (26-34); Mean Corpuscular Volume 88.8 fL (80-100); Platelet Count 331 X10^3/uL (150-400)
[2025-07-08 12:02] LABS: Alanine Aminotransferase 17 IU/L (<35); Albumin 4.8 g/dL (3.5-5.0); Albumin Globulin Ratio 1.7 (1.0-2.8); Alkaline Phosphatase 51 U/L (38-126); Blood Urea Nitrogen 18 mg/dL (7-17); Calcium 9.8 mg/dL (8.4-10.2); Carbon Dioxide 24 mmol/L (22-32); Chloride 106 mmol/L (98-107); Cholesterol 201 mg/dL (140-199); Estimated Glomerular Filt Rate > 60 mL/min (>60); Globulin 2.9 g/dL (1.7-4.1); Glucose 105 mg/dL (70-99); HEMOLYSIS < 15 (0-50); Sodium 140 mmol/L (137-145); Total Protein 7.7 g/dL (6.3-8.2); Triglycerides 81 mg/dL (35-150)
[2025-07-08 12:03] LABS: Potassium 5.4 mmol/L (3.4-5.1)
[2025-07-08 12:11] LABS: HDL Cholesterol 115 mg/dL (40-60)
== END ==
PROVIDERS: PCP Family Medicine; Referring Provider Family Medicine; Visit Provider Family Medicine
DX: E78.2 Mixed hyperlipidemia (principal)
CPT/HCPCS: 36415; 80053; 80061; 85025

== ENCOUNTER 2025-07-14 08:17 | Day surgery (SDC) | payer MEDICARE, SELFPAY ==
--- NOTE | 2025-07-14 | PATH_ITS ---
[facility] Accession Number: [id number] No. of containers..01 Tissue . 01 Material submitted: . colon - COLON, ASCENDING . 01 Diagnosis: COLON, ASCENDING: Colonic mucosa with no diagnostic alterations. No active inflammation, granulomas, dysplasia, or malignancy identified. No evidence of colitis. [facility] 07/25/2025 1243 Local . 01 Electronically signed: . Bigg Hennessy MD, Pathologist NPI- [id number] . 01 Gross description: . Received in formalin with two identifiers and ascending colon are four villa soft tissue fragments ranging from 0.2 to 0.2 cm in greatest dimension, entirely submitted in A1. (AER:[id number]) /MRV 07/25/2025 1243 Local . 01 Pathologist provided ICD-10: Z12.11 . 01 CPT . 141053 Specimen Comment: A courtesy copy of this report has been sent to [phone] Performed at: [address] [address] [address], [place], [place] [id number] MD Bigg Hennessy MD Phone: [phone]
[2025-07-14] MEDS: LACTATED RINGERS 1,000 ML 42 ML IV (08:44)
[2025-07-14 08:50] VITALS: BP 141/42; PULSE 99; RESP 15; TEMP 36.4; O2SAT 97
--- NOTE | 2025-07-14 09:29 | P.HP_ITS ---
History of Present Illness History of Present Illness Date Patient Seen: 07/14/25 Time Patient Seen: 09:29 Chief complaint: Colonoscopy Narrative: Radha is a 80-year-old woman who has a history of colon polyps. Her last colonoscopy was about 5 years ago and she believes there were no polyps that time. There is no known family history of colon cancer. [facility] Medical History UTI (urinary tract infection) Mild mitral regurgitation Mild aortic regurgitation Congenital pectus excavatum Cardiomegaly Hyperlipidemia Pancreatic cyst IBS (irritable bowel syndrome) Left renal stone Secondhand smoke exposure Hypercalcemia Bowel dysfunction History of neurological disease History of kidney stones (~2021) Acute UTI No active medical problems Concussion Laceration of skin of scalp Head contusion Surgical History Anesthesia History of nephrolithotomy with removal of calculi (~2021) History of breast biopsy Family History Mother Cancer Sister No problems noted. Social History marital status: number of children: 0 Smoking Status: Never smoker alcohol intake: never Meds Home Medications and Allergies Home Medications ?Medication ?Instructions ?Recorded ?Confirmed ?Type cholecalciferol (vitamin D3) 50 2,000 iu PO QDAY ##0 0 07/02/16 07/14/25 History mcg (2,000 unit) capsule (Vitamin D3) acyclovir 400 mg tablet 400 mg PO 5XD outbreaks #60 tabs 09/03/24 07/14/25 Rx rosuvastatin 10 mg tablet 10 mg PO DAILY #90 tabs 06/0307/14/25 Rx conjugated estrogens 0.625 mg/gram 0.625 mg vaginal DA TEVIN #30 grams 07/08/25 07/14/25 Rx vaginal cream levothyroxine 50 mcg tablet 50 mcg PO DAILY 07/14/25 0 07/14/25 History Allergies Allergy/AdvReac Type Severity Reaction Status Date / Time Sulfa (Sulfonamide Allergy Intermediate Verified 07/08/25 10:10 Antibiotics) (SULFA (SULFONAMIDE ANTIBIOTICS)) indapamide AdvReac Hives Verified 07/08/25 10:10 Exam Vital Signs (past 8 hours): - 07/14/25 08:50 Temperature 97.5 F L Pulse Rate 99 H Respiratory Rate 15 Blood Pressure 141/42 H Pulse Oximetry 97 Oxygen Delivery Method Room Air Oxygen Delivery Method Room Air Const General: healthy appearing Assessment & Plan Assessment and plan (1) History of colon polyps: Status: Acute Plan Colonoscopy Time-Based Coding :: [TOTAL MINUTES] spent with patient and on the chart (including review of chart, obtaining history, exam, reviewing outside data, placing orders, documenting exam and treatment plan, and counseling patient) on [DATE]. PROFEE Physicist [employer] Document charge(s): No
--- NOTE | 2025-07-14 10:11 | PM.OP.COLON ---
Operative Date/Time/Diagnoses Date of procedure: 07/14/25 Time of procedure: 10:11 Pre-op diagnosis: History of polyps Post-op diagnosis: same Procedure & Clinicians Study performed: Colonoscopy Same procedure(s) as scheduled: Yes Surgeon: Rey Rucker Anesthesia Type: MAC +/- Procedure Notes Procedure in detail: Surgeon: Rey Rucker MD Anesthesia: Taina Rafael HISTORICAL SOCIETY DIRECTOR Procedure: The patient was brought to the endoscopy suite, placed in left lateral decubitus position. The patient was connected to monitoring devices. A time-out was performed. Sedation was administered. Once the patient was adequately sedated, a digital rectal exam was performed and was normal. The scope was then inserted and advanced to the cecum where the appendiceal orifice was identified and photographed. The scope was then slowly withdrawn over greater than 6 minutes. The mucosa was thoroughly inspected. There was a 3 mm polyp in the ascending colon removed with a cold snare. No other abnormalities were seen. The scope was retroflexed in the rectum. The scope was straightened and removed. The patient was awakened and brought to recovery. Scope withdrawal time: 18 minutes Sedation time: 20 minute EBL: 3 mL Findings: 3 mm ascending colon polyp Post-procedure Disposition: PACU
[2025-07-14 10:13] VITALS: BP 112/55; PULSE 72; RESP 16; O2SAT 96
[2025-07-14 10:14] VITALS: BP 111/53; PULSE 72; RESP 16; TEMP 36.6; O2SAT 96
[2025-07-14 10:15] VITALS: BP 113/56; PULSE 69; RESP 16; O2SAT 96
[2025-07-14 10:23] VITALS: BP 120/57; PULSE 68; RESP 16; O2SAT 97
== END 2025-07-14 10:46 | disposition home or self-care (01) ==
PROVIDERS: PCP Family Medicine; Referring Provider Surgery; Visit Provider Surgery
PROC: 0DJD8ZZ Inspection of Lower Intestinal Tract, Via Natural or Artificial Opening Endoscopic (ICD-10-PCS; CPT 45378; principal; 2025-07-14 09:45)
DX: Z12.11 Encounter for screening for malignant neoplasm of colon (principal); Z86.0100 Personal history of colon polyps, unspecified; K63.5 Polyp of colon
CPT/HCPCS: 45385; J2704

== ENCOUNTER → 2025-08-11 13:09 | Outpatient (CLI) | payer MEDICARE, SELFPAY | PROVIDERS: PCP Family Medicine; Visit Provider Chiropractor | DX: N39.0 Urinary tract infection, site not specified (principal); R30.0 Dysuria | CPT/HCPCS: 87077; 87086; 87186 ==

== ENCOUNTER → 2025-09-16 10:41 | Outpatient (CLI) | payer MEDICARE, SELFPAY ==
[2025-09-16 11:54] LABS: HEMOLYSIS < 15 (0-50); Potassium 4.9 mmol/L (3.4-5.1)
== END ==
LOC: LAB 10:43
PROVIDERS: PCP Family Medicine; Referring Provider Family Medicine; Visit Provider Family Medicine
DX: E87.5 Hyperkalemia (principal)
CPT/HCPCS: 36415; 84132

== ENCOUNTER → 2025-09-28 09:24 | Outpatient (CLI) | payer MEDICARE, SELFPAY | PROVIDERS: PCP Family Medicine; Visit Provider Urology | DX: N30.01 Acute cystitis with hematuria (principal) | CPT/HCPCS: 87077; 87086; 87186 ==

== ENCOUNTER → 2025-10-07 10:54 | Outpatient (CLI) | payer MEDICARE, SELFPAY ==
[2025-10-07 12:46] LABS: Appearance Urine UA CLEAR; Bilirubin Urine UA NEGATIVE (NEGATIVE); Color Urine UA YELLOW; Glucose Urine UA NEGATIVE (Negative); Ketones Urine UA NEGATIVE (NEGATIVE); Leukocyte Esterase Urine UA 1+ (NEGATIVE); Nitrite Urine UA NEGATIVE (Negative); Occult Blood Urine UA TRACE-INTACT (Negative); Protein Urine UA NEGATIVE (Negative); Specific Gravity Urine UA <=1.005 (1.000-1.035); Urobilinogen Urine UA 0.2 E.U./dL (0.2)
[2025-10-07 12:48] LABS: pH Urine UA 6.5 (4.5-8.0)
[2025-10-07 13:00] LABS: Culture Indicated Urine Specimen Cultured
== END ==
PROVIDERS: PCP Family Medicine; Referring Provider Urology; Visit Provider Urology
DX: N39.0 Urinary tract infection, site not specified (principal)
CPT/HCPCS: 81001; 87077; 87086; 87186